=== PATIENT | male | born 1935 | race Caucasian/White ===

== ENCOUNTER 2018-08-25 20:01 | Inpatient (IN) | payer MEDICARE, OTHER ==
[~2018-08-25] VITALS: Ht 170.2 cm; Wt 64.4 kg
[2018-08-25] MEDS ORDERED: IV NORMAL SALINE 500 ML BAG IV ONE (20:15)
--- NOTE | 2018-08-25 20:20 | NUR ---
Pt. BIB [facility] for [facility], Dr. Crews notified- pt. is outside of [facility] window, last known "normal" mentation @1300, code stroke not activated per Dr. Crews,
[2018-08-25 20:30] LABS: BASOPHILS # (AUTO) 0.1 K/uL (0.0-8.0); BASOPHILS % (AUTO) 1.4 % (0.0-2.0); EOSINOPHILS # (AUTO) 0.1 K/uL (0.0-0.7); EOSINOPHILS % (AUTO) 1.2 % (0.0-7.0); HEMOGLOBIN 11.5 g/dL (12.5-16.3); LYMPHOCYTES # (AUTO) 1.2 K/uL (20.0-40.0); LYMPHOCYTES % (AUTO) 19.6 % (20.5-51.5); MEAN CORPUSCULAR HEMOGLOBIN 29.1 uug (23.8-33.4); MEAN CORPUSCULAR HGB CONC 33 g/dL (32.5-36.3); MEAN CORPUSCULAR VOLUME 88.7 fL (73.0-96.2); MONOCYTES # (AUTO) 0.5 K/uL (2.0-10.0); MONOCYTES % (AUTO) 8.7 % (0.0-11.0); NEUTROPHILS # (AUTO) 4.1 K/uL (1.8-8.9); NEUTROPHILS % (AUTO) 69.1 % (38.5-71.5); PLATELET COUNT (AUTO) 210 K/uL (152-348); RED BLOOD CELL COUNT(AUTO) 3.95 MIL/uL (4.06-5.63)
[2018-08-25 20:41] LABS: CARBON DIOXIDE 26 mmol/L (21-32); CHLORIDE 103 mmol/L (98-107); CREATININE 1.5 mg/dL (0.6-1.3); GLUCOSE 168 mg/dL (74-106); POTASSIUM 3.6 mmol/L (3.5-5.1); UREA NITROGEN, BLOOD 15 mg/dL (7-18)
[2018-08-25 20:43] LABS: ETHANOL < 3 MG/DL (0-0)
[2018-08-25 20:47] LABS: ALANINE AMINOTRANSFERASE 17 U/L (16-63); ALKALINE PHOSPHATASE 199 U/L (50-136); ASPARTATE AMINOTRANSFERASE 11 U/L (15-37); BILIRUBIN,DIRECT 0.3 mg/dL (0.0-0.2); TOTAL PROTEIN, SERUM 7.3 g/dL (6.4-8.2)
[2018-08-25 20:48] LABS: ACETAMINOPHEN < 2.0 ug/mL (10-30)
[2018-08-25 20:54] LABS: THYROID STIMULATING HORMONE 2.014 mIU/mL (0.358-3.740)
--- NOTE | 2018-08-25 20:55 | NUR ---
Pt. back from CT, resting in bed, IV patent - no s/s infiltration/phlebitis, urine specimen cup and urinal given,
--- NOTE | 2018-08-25 21:39 | NUR ---
urinal specimen sent to lab
[2018-08-25 21:48] LABS: *BILIRUBIN,URIN 1+ (NEGATIVE); *BLOOD, URINE Trace-intact (NEGATIVE); *CLARITY,URINE CLEAR (CLEAR); *COLOR,URINE YELLOW (YELLOW); *KETONES,URINE 1+ (NEGATIVE); *UROBILINOGEN,URINE 0.2 E.U./dl (NORMAL); LEUKOCYTE ESTERASE ,URINE NEGATIVE (NEGATIVE); NITRITE, URINE NEGATIVE (NEGATIVE); PH,URINE 5.5 (5.0-8.0); UGLUCOSE TRACE (NEGATIVE)
[2018-08-25] MEDS ORDERED: ASPI-605 PO (21:48)
[2018-08-25] MEDS ORDERED: DONE10TA44 PO (21:48)
[2018-08-25] MEDS ORDERED: METF-440 PO (21:48)
[2018-08-25] MEDS ORDERED: ATOR40TA PO (21:48)
[2018-08-25] MEDS ORDERED: CHOL10005 PO (21:48)
[2018-08-25] MEDS ORDERED: OMEP20CA11 PO (21:48)
[2018-08-25] MEDS ORDERED: CARB-93 PO (21:48)
[2018-08-25] MEDS ORDERED: MEMA28CA5 PO (21:48)
[2018-08-25] MEDS ORDERED: CYAN-51 PO (21:48)
[2018-08-25] MEDS ORDERED: MAGN400C PO (21:48)
[2018-08-25] MEDS ORDERED: FOLI1TAB16 PO (21:48)
[2018-08-25] MEDS ORDERED: GLIM2TAB2 PO (21:48)
[2018-08-25] MEDS ORDERED: SITA50TA PO (21:48)
[2018-08-25] MEDS ORDERED: METO25TA6 PO (21:48)
[2018-08-25] MEDS ORDERED: LOSA1TAB36 PO (21:48)
[2018-08-25] MEDS ORDERED: GABA-534 PO (21:48)
[2018-08-25 21:50] LABS: BACTERIA,URINE RARE /HPF (NONE SEEN); RBC,URINE 0-3 /HPF (0-3); SQUAMOUS EPITHELIAL CELL,UR NONE SEEN /HPF (NONE SEEN); WBC,URINE 0-3 /HPF (0-3)
[2018-08-25 22:02] LABS: *AMPHETAMINE, URINE NEGATIVE (NEGATIVE); *BARBITURATE, URINE NEGATIVE (NEGATIVE); *CANNABINOID, URINE NEGATIVE (NEGATIVE); *COCCAINE, URINE NEGATIVE (NEGATIVE); *OPIATE, URINE NEGATIVE (NEGATIVE); *PHENCYCLIDINE SCREEN,URINE NEGATIVE (NEGATIVE)
[2018-08-25] MEDS ORDERED: ASPIRIN 300 MG RECTAL SUPP RC ONE ×2 (22:06→22:15)
--- NOTE | 2018-08-25 22:33 | NUR ---
Gave report to Larisa, pt. to admit to [address] w/ Dr[address] Carr
[2018-08-25] MEDS ORDERED: ONDANSETRON 4 MG/2 ML VIAL IV PRN (22:45)
[2018-08-25] MEDS ORDERED: ENALAPRILAT DIHYDRATE 1.25 MG/1 ML VIAL IV PRN (22:45)
[2018-08-25] MEDS ORDERED: DEXTROSE 50% 50 ML DISP.SYRIN IV PRN (22:45)
[2018-08-25] MEDS ORDERED: MORPHINE SULFATE 2 MG/1 ML DISP.SYRIN IV PRN (22:45)
--- NOTE | 2018-08-25 23:09 | NUR ---
Pt. taken off unit in stretcher by AUTOMATION CONTROL TECHNICIAN to admit to 217 tele. care of Larisa LEWIS, NAD,
--- NOTE | 2018-08-25 23:10 | NUR ---
PATIENT ADMITTED TO UNIT. PATIENT ON TELE MONITORING. SR V-PACING AT 70 BPM. LETHARGIC AND SLEEPING INTERMITTENTLY. VITAL SIGNS WNL. WILL CONTINUE TO MONITOR.
[2018-08-25 23:14] VITALS: BP 158/78
[2018-08-26] MEDS: BLOOD SUGAR DIAGNOSTIC 1 EACH STRIP VI SCH ×4 (00:28→18:08)
[2018-08-26] MEDS: POTASSIUM CHLORIDE 20 MEQ in IV D5 1/2 NS 1000 ML 1,000 ML IV PRN ×2 (00:40→18:20)
--- NOTE | 2018-08-26 03:57 | NUR ---
Patient's urine turned hematuric; referred to Bari Estrada NP, and he ordered UA; no need to irrigate FC for now and observed.
[2018-08-26 04:00] VITALS: BP 108/72
[2018-08-26 04:56] LABS: *CLARITY,URINE CLOUDY (CLEAR); *COLOR,URINE AMBER (YELLOW)
[2018-08-26 04:58] LABS: *BLOOD, URINE 3+ (NEGATIVE); UGLUCOSE NEGATIVE (NEGATIVE)
[2018-08-26 04:59] LABS: *BILIRUBIN,URIN NEGATIVE (NEGATIVE); *KETONES,URINE 1+ (NEGATIVE); *UROBILINOGEN,URINE 0.2 E.U./dl (NORMAL)
[2018-08-26 05:00] LABS: LEUKOCYTE ESTERASE ,URINE 1+ (NEGATIVE); NITRITE, URINE POSITIVE (NEGATIVE)
[2018-08-26 05:11] LABS: BACTERIA,URINE MANY /HPF (NONE SEEN); MUCUS,URINE FEW /LPF (0-FEW); RBC,URINE TNTC /HPF (0-3); RENAL EPITHELIAL CELLS,URINE FEW /LPF (NONE SEEN); SQUAMOUS EPITHELIAL CELL,UR FEW /HPF (NONE SEEN)
[2018-08-26 06:39] LABS: BASOPHILS # (AUTO) 0.1 K/uL (0.0-8.0); BASOPHILS % (AUTO) 0.8 % (0.0-2.0); EOSINOPHILS % (AUTO) 0.1 % (0.0-7.0); HEMATOCRIT 34.1 % (36.7-47.1); HEMOGLOBIN 11.1 g/dL (12.5-16.3); LYMPHOCYTES % (AUTO) 13.4 % (20.5-51.5); MEAN CORPUSCULAR HEMOGLOBIN 28.8 uug (23.8-33.4); MEAN CORPUSCULAR HGB CONC 33 g/dL (32.5-36.3); MEAN CORPUSCULAR VOLUME 88.7 fL (73.0-96.2); MONOCYTES # (AUTO) 0.5 K/uL (2.0-10.0); MONOCYTES % (AUTO) 6.9 % (0.0-11.0); NEUTROPHILS # (AUTO) 5.8 K/uL (1.8-8.9); NEUTROPHILS % (AUTO) 78.8 % (38.5-71.5); PLATELET COUNT (AUTO) 203 K/uL (152-348); RED BLOOD CELL COUNT(AUTO) 3.84 MIL/uL (4.06-5.63); WHITE BLOOD COUNT (AUTO) 7.4 K/uL (3.6-10.2)
--- NOTE | 2018-08-26 06:52 | NUR ---
Alert and oriented x 1. IV site on right RAC intact and patent. Sewell intact and draining blood colored urine. aware. V pacing on tele at 71 bpm. Safety measures and call nur within reach. Will endorse to oncoming shift accordingly.
[2018-08-26 07:06] LABS: THYROID STIMULATING HORMONE 1.152 mIU/mL (0.358-3.740)
[2018-08-26 07:15] LABS: IRON, SERUM 32 ug/dL (50-175)
[2018-08-26] MEDS: INSULIN REGULAR, HUMAN 300 UNIT/3 ML VIAL SQ PRN ×2 (07:26→12:18)
[2018-08-26 07:57] LABS: ALANINE AMINOTRANSFERASE 18 U/L (16-63); ALKALINE PHOSPHATASE 192 U/L (50-136); ASPARTATE AMINOTRANSFERASE 11 U/L (15-37); BILIRUBIN,TOTAL 1.2 mg/dL (0.2-1.0); CARBON DIOXIDE 26 mmol/L (21-32); CHLORIDE 102 mmol/L (98-107); CHOLESTEROL 166 mg/dL (<200); CREATININE 1.5 mg/dL (0.6-1.3); GLUCOSE 200 mg/dL (74-106); HDL CHOLESTEROL 59 mg/dL (40-60); MAGNESIUM 1.8 mg/dL (1.8-2.4); PHOSPHOROUS 3.1 mg/dL (2.5-4.9); POTASSIUM 3.9 mmol/L (3.5-5.1); TOTAL PROTEIN, SERUM 6.9 g/dL (6.4-8.2); TRIGLYCERIDES 71 MG/DL (30-150); UREA NITROGEN, BLOOD 15 mg/dL (7-18)
[2018-08-26] MEDS: ASPIRIN 300 MG RECTAL SUPP RC SCH (08:44)
[2018-08-26] MEDS: FUROSEMIDE 20 MG/2 ML VIAL IV SCH (08:44)
[2018-08-26] MEDS: PANTOPRAZOLE SODIUM 40 MG VIAL IV SCH (08:44)
--- NOTE | 2018-08-26 09:00 | NUR ---
DR KAREN CARRILLO WAS INFORM OF LACTIC ACID RESULT 2.8 TODAY
[2018-08-26] MEDS ORDERED: MORPHINE SULFATE 4 MG/1 ML DISP.SYRIN IV PRN (10:15)
[2018-08-26 11:50] VITALS: BP 155/77
[2018-08-26 11:55] LABS: *CREATININE,URINE 37.5 mg/dL (30-125)
--- NOTE | 2018-08-26 13:00 | NUR ---
STROKE EDUCATION GIVEN TRWITH TRANSLATE IN FARSI SEEM TO BE UNDERSTAND BUT SLOW REACTION
--- NOTE | 2018-08-26 13:50 | NUR ---
C/O OF RT SIDE ARM AND LEG PAIN MORPHINE 1 MG IVP GIVEN ORDER AND O2 2 L APPLY FOR COMFORT CLOSED OBSERVATION
--- NOTE | 2018-08-26 14:00 | NUR ---
WOUND CARE NURSE SEEN PATIENT AND PICTURE TAKEN AT SACRAL AND LEFT HEEL MEPILEX COVER
[2018-08-26] MEDS ORDERED: Z GUARD REMEDY PASTE 57 GM TUBE TOP PRN (14:30)
[2018-08-26 15:59] VITALS: BP 143/68
[2018-08-26] MEDS: ACETAMINOPHEN 650 MG SUPP.RECT RC PRN (16:06)
--- NOTE | 2018-08-26 16:10 | NUR ---
INFORMED LORENA STREETER ABOUT LACTIC ACID REPEAT TEST 2.4. WILL CONTINUE TO MONITOR.
--- NOTE | 2018-08-26 16:20 | NUR ---
IVF RATE LOW DOWN TO 30ML./HR ORDER AND TYLENOL GIVEN FOR LOW GRADE TEMP 100.5 AND FOR COMFORT
--- NOTE | 2018-08-26 17:00 | NUR ---
DR MCPHERSON WAS INFORM OF PATIENT TROP WAS 0.066 AND ECCHO EF WAS 20-25% STATE WILL CHECK ON IT
--- NOTE | 2018-08-26 18:00 | NUR ---
STABLE HEMODYNAMIC STATUS NO RESPIRATORY DISTRESS OR SOB CONTINUE O2 2L VIA N/C F/C INPLACE URINE BROWNISH CLOUDY WITH SMALL BLOOD NOTED ,PAIN UNDER CONTROL SAFETY MEASURE PROVIDED CALL LIGHT IN REACH AND BED ALARM ON CLOSED OBSERVATION STILL NPO AND CONTINUE IVF
[2018-08-26] MEDS: CEFTRIAXONE 1 G in IV DEXTROSE 5% 50 ML IV SCH (18:34)
[2018-08-26 19:00] VITALS: BP 121/55
--- NOTE | 2018-08-26 19:15 | NUR ---
RECEIVED PATIENT SLEEPING. NO S/S OF RESPIRATORY DISTRESS. ON CONTINUOS O2 AT 2L VIA NC TOLERATING WELL, SATURATING 96%. SAFETY MEASURE AND AFLL PRECAUTION MAINTAINED. CONTINUE CARE PLANNED.
[2018-08-26] MEDS: ATORVASTATIN 10 MG TABLET PO SCH ×2 (20:37→20:41)
[2018-08-26] MEDS: Z GUARD REMEDY PASTE 57 GM TUBE TOP SCH (20:37)
[2018-08-27] VITALS (15 sets, daily range): BP systolic 96–136; BP diastolic 45–78
[2018-08-27] MEDS: BLOOD SUGAR DIAGNOSTIC 1 EACH STRIP VI SCH ×4 (00:10→17:47)
--- NOTE | 2018-08-27 06:58 | NUR ---
SHIFT END REPORT. SLEPT WELL. NO COMPLAINT PRESENTED. NO S/S OF RESPIRATORY DISTRESS. TOLERATING O2 AT 2L VIA NC. HOB ELEVATED AT ALL TIMES. F/C INTACT AND PATENT WITH LIGHT BROWNISH COLORED URINE. CONTINUE ON IVF ORDERED. IV INTACT AND PATENT, NO S/S OF INFILTRATION. KEPT NPO UNTIL ST EVALUATION. ALL NEEDS ATTENDED AND MET. CONTINUE CARE PLANNED.
--- NOTE | 2018-08-27 08:00 | NUR ---
AWAKE WHEN CALL BUT STILL SLURRED SPEECH NO SOB OR PAIN ON ASPIRATION AND FALL PRECAUTION BED ALARM ON AND CALL LIGHT IN REACH
--- NOTE | 2018-08-27 08:45 | NUR ---
ST SEEN PATIENT AT THIS TIME AND DO SWALLOWING TEST AND STATE HE CAN EAT WHEN AWAKE WITH PUREE THICK LIQ ASPIRATION PRECAUTION ONLY
[2018-08-27] MEDS: ASPIRIN 300 MG RECTAL SUPP RC SCH ×2 (08:46→09:00)
[2018-08-27] MEDS: PANTOPRAZOLE SODIUM 40 MG VIAL IV SCH (08:46)
[2018-08-27] MEDS: FUROSEMIDE 20 MG/2 ML VIAL IV SCH (08:46)
[2018-08-27] MEDS: Z GUARD REMEDY PASTE 57 GM TUBE TOP SCH ×2 (08:47→21:36)
[2018-08-27 09:29] LABS: BASOPHILS # (AUTO) 0.1 K/uL (0.0-8.0); BASOPHILS % (AUTO) 0.9 % (0.0-2.0); HEMATOCRIT 34.3 % (36.7-47.1); HEMOGLOBIN 11.5 g/dL (12.5-16.3); LYMPHOCYTES # (AUTO) 1.2 K/uL (20.0-40.0); MEAN CORPUSCULAR HEMOGLOBIN 28.8 uug (23.8-33.4); MEAN CORPUSCULAR HGB CONC 33 g/dL (32.5-36.3); MEAN CORPUSCULAR VOLUME 86.3 fL (73.0-96.2); MONOCYTES % (AUTO) 11.4 % (0.0-11.0); NEUTROPHILS # (AUTO) 6.8 K/uL (1.8-8.9); NEUTROPHILS % (AUTO) 74.7 % (38.5-71.5); PLATELET COUNT (AUTO) 175 K/uL (152-348); RED BLOOD CELL COUNT(AUTO) 3.98 MIL/uL (4.06-5.63); WHITE BLOOD COUNT (AUTO) 9.1 K/uL (3.6-10.2)
--- NOTE | 2018-08-27 09:30 | NUR ---
CHEST WAS MORE CONGESTION SUCTION TO MOUTH GIVEN BUT DOES NOT GET MUCH SPUTUM OUT KEEP HOB UP AND CLOSED OBSERVATION
--- NOTE | 2018-08-27 09:35 | NUR ---
TO CT HEAD WITHOUT CONTRAST VIA BED
[2018-08-27 09:52] LABS: ALANINE AMINOTRANSFERASE 18 U/L (16-63); ALKALINE PHOSPHATASE 163 U/L (50-136); ASPARTATE AMINOTRANSFERASE 9 U/L (15-37); BILIRUBIN,TOTAL 1.7 mg/dL (0.2-1.0); CARBON DIOXIDE 27 mmol/L (21-32); CHLORIDE 100 mmol/L (98-107); CREATININE 1.3 mg/dL (0.6-1.3); GLUCOSE 164 mg/dL (74-106); MAGNESIUM 1.7 mg/dL (1.8-2.4); PHOSPHOROUS 3.8 mg/dL (2.5-4.9); POTASSIUM 3.9 mmol/L (3.5-5.1); TOTAL PROTEIN, SERUM 6.7 g/dL (6.4-8.2); UREA NITROGEN, BLOOD 17 mg/dL (7-18)
--- NOTE | 2018-08-27 10:00 | NUR ---
BACK TO ROOM FAMILY AT BEDSIDE SUCTION PRN GIVEN
--- NOTE | 2018-08-27 10:25 | NUR ---
KAREN FLOOD WAS INFORM OF RESULT OF CT OF HEAD HAVING HEMORRHAGE AND CAROTID US WAS DONE AT BEDSIDE
--- NOTE | 2018-08-27 10:45 | NUR ---
DR LORENA JONES WAS SEEN PATIENT AND PATIENT CONDITION CONGESTION INCREASE NOTIFY ,ORDER IN CHART F/C INPLACE URINE CLOUDY BROWN NO BLOOD SEEN AT THIS TIME
--- NOTE | 2018-08-27 11:00 | NUR ---
VS TAKEN STABLE CONTINUE O2 AT 2L BUMEX IVP GIVEN ORDER URINE MORE CLEAR YELLOW NO BLOOD REPOSITION AWAKE OPEN EYE WHEN CALL NAME KEEP NPO BECAUSE DOES NOT AWAKE ENOUGH TO EAT STILL WEAK/FLACCID ON RT SIDE AND LEFT SIDE ABLE TO MOVE BUT WEAK,PHYSICAL THERAPY DO EXCERCISE ONLY UP AND DANGLE AT SIDE OF BED
[2018-08-27] MEDS ORDERED: BUMETANIDE 1 MG/4 ML VIAL IV ONE (11:45)
[2018-08-27] MEDS: INSULIN REGULAR, HUMAN 300 UNIT/3 ML VIAL SQ PRN ×2 (12:19→17:49)
--- NOTE | 2018-08-27 13:00 | NUR ---
TELE RUN SVT VS TAKEN AGAIN BP STABLE NO PAIN OR ANY RESPIRATORY DISTRESS CLOSED OBSERVATION DR LORENA JONES WAS INFORM ORDER TO TRANSFER TO THE UNIT CCU
--- NOTE | 2018-08-27 13:45 | NUR ---
TRANSFER TO CCU VIA BED AND REPORT GIVEN CONDITION STABLE
--- NOTE | 2018-08-27 14:00 | NUR ---
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 PT UPON ARRIVAL CONNECTED TO ECG MONITOR W/S TAKEN PT HAS A PACEMAKER ; V-PACING. HAS A RT AC IV LINE G20 RECEIVING IVF D5 1/2 NS +20meq K @ 30ML/HR. URINATING VIA FC.
[2018-08-27] MEDS: ACETAMINOPHEN 650 MG SUPP.RECT RC PRN (14:27)
--- NOTE | 2018-08-27 14:30 | NUR ---
PATIENTS TEMP TAKEN 102.3 AXI, COOLING MEASUREMENTS TAKEN, COOLING MATTRESS APPLIED AND TYLENOL OK GIVEN.
--- NOTE | 2018-08-27 15:20 | NUR ---
KAREN MARIA INFORMED ABOUT HIGH TEMP ORDERED TO ADD ZOSYN IV TO MEDICATION REGIMEN. ORDERS RECEIVED.
[2018-08-27] MEDS ORDERED: PIPERACILLIN/TAZOBACTAM/D5W 3.375 G in PREMIXED 1 EACH IV SCH (15:45)
[2018-08-27] MEDS: POTASSIUM CHLORIDE 20 MEQ in IV D5/ 0.9% NACL 1,000 ML IV PRN (16:36)
[2018-08-27] MEDS: PIPERACILLIN/TAZOBACTAM/D5W 3.375 G in PREMIXED 1 EACH IV SCH (16:37)
--- NOTE | 2018-08-27 17:30 | NUR ---
PATIENT SENT DOWN TO RADIOLOGY UNIT, CT SCAN DONE, NO COMPLICATIONS AND BACK TO CCU.
[2018-08-27] MEDS: CEFTRIAXONE 1 G in IV DEXTROSE 5% 50 ML IV SCH (17:42)
[2018-08-28] VITALS (23 sets, daily range): BP systolic 91–151; BP diastolic 44–93
[2018-08-28] MEDS: PIPERACILLIN/TAZOBACTAM/D5W 3.375 G in PREMIXED 1 EACH IV SCH ×4 (00:16→21:46)
[2018-08-28] MEDS: BLOOD SUGAR DIAGNOSTIC 1 EACH STRIP VI SCH ×5 (00:25→23:31)
[2018-08-28] MEDS: INSULIN REGULAR, HUMAN 300 UNIT/3 ML VIAL SQ PRN ×5 (00:26→23:32)
[2018-08-28 05:19] LABS: BASOPHILS % (AUTO) 0.5 % (0.0-2.0); HEMATOCRIT 33.3 % (36.7-47.1); HEMOGLOBIN 11.3 g/dL (12.5-16.3); LYMPHOCYTES # (AUTO) 1.1 K/uL (20.0-40.0); LYMPHOCYTES % (AUTO) 13.5 % (20.5-51.5); MEAN CORPUSCULAR HEMOGLOBIN 28.9 uug (23.8-33.4); MEAN CORPUSCULAR HGB CONC 34 g/dL (32.5-36.3); MONOCYTES # (AUTO) 0.8 K/uL (2.0-10.0); MONOCYTES % (AUTO) 9.2 % (0.0-11.0); NEUTROPHILS # (AUTO) 6.4 K/uL (1.8-8.9); NEUTROPHILS % (AUTO) 76.8 % (38.5-71.5); PLATELET COUNT (AUTO) 184 K/uL (152-348); RED BLOOD CELL COUNT(AUTO) 3.91 MIL/uL (4.06-5.63); WHITE BLOOD COUNT (AUTO) 8.4 K/uL (3.6-10.2)
[2018-08-28 05:26] LABS: ALANINE AMINOTRANSFERASE 13 U/L (16-63); ALKALINE PHOSPHATASE 130 U/L (50-136); ASPARTATE AMINOTRANSFERASE 10 U/L (15-37); CARBON DIOXIDE 27 mmol/L (21-32); CHLORIDE 102 mmol/L (98-107); CREATININE 1.4 mg/dL (0.6-1.3); GLUCOSE 171 mg/dL (74-106); MAGNESIUM 1.5 mg/dL (1.8-2.4); PHOSPHOROUS 3.8 mg/dL (2.5-4.9); POTASSIUM 3.5 mmol/L (3.5-5.1); TOTAL PROTEIN, SERUM 6.2 g/dL (6.4-8.2); UREA NITROGEN, BLOOD 23 mg/dL (7-18)
[2018-08-28] MEDS: ACETAMINOPHEN 650 MG SUPP.RECT RC PRN ×2 (06:01→18:09)
--- NOTE | 2018-08-28 07:48 | NUR ---
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 PT HAS A LT SIDE PACEMAKER ; V-PACING. HAS A RT AC IV LINE G20 RECEIVING IVF D5 1/2 NS +20meq K @ 30ML/HR. URINATING VIA FC. TEMP AROUND 101 F, COOLING MATTRESS UNDER PATIENT
[2018-08-28] MEDS: POTASSIUM CHLORIDE 20 MEQ in IV D5/ 0.9% NACL 1,000 ML IV PRN (07:54)
[2018-08-28] MEDS: FUROSEMIDE 20 MG/2 ML VIAL IV SCH (08:36)
[2018-08-28] MEDS: PANTOPRAZOLE SODIUM 40 MG VIAL IV SCH (08:37)
[2018-08-28] MEDS: Z GUARD REMEDY PASTE 57 GM TUBE TOP SCH ×2 (08:37→20:22)
--- NOTE | 2018-08-28 10:30 | NUR ---
SEEN BY JESSICA VILLAFANA,EVGENY-NEURO. UPDATES GIVEN ON PATIENT. ASSESSMENT DONE AND ADVISED TO KEEP PATIENT IN CCU FOR ANOTHER NIGHT UNDER NEURO OBSERVATION. NO NEW ORDERS
--- NOTE | 2018-08-28 11:00 | NUR ---
SEEN BY, EVGENY KIRK STUDENT WITH CANDACE HEMPHILL, ASSESSMENT DONE. CONCERNS RELATED NUTRITION GIVEN, SUGGESTED TUBE FEEDING. NEW ORDERS RECEIVED, NEURO CONCERNS RELATED OBSERVATION GIVEN.
[2018-08-28] MEDS: MAGNESIUM SULFATE/D5W 100 ML IV SCH ×2 (11:59→12:57)
--- NOTE | 2018-08-28 12:32 | NUR ---
SEEN BY DNP,KAREN CAMARILLO, ORDERED TO FOR A SWALLOW EVALUATION, AND START NGT FEEDING, ONCE STARTED TO DISCONTINUE IV FLUID. AND KEEP PATIENT IN CCU TILL SHIFT CHANGE THEN TRANSFER PATIENT TO [facility]. ALL ORDERS RECEIVED
--- NOTE | 2018-08-28 13:00 | NUR ---
NG TUBE INSERTED SIZE 16 IN THE RT NARE. CX-RAY DONE, TUBE PLACEMENT VERIFIED. DIETARY CONSULTATION PUT IN AWAITING FOR TUBE FEEDING RECOMMENDATIONS.
[2018-08-28] MEDS: GLUCERNA 1.2 1000ML LIQUID NG PRN (14:15)
--- NOTE | 2018-08-28 14:30 | NUR ---
NEW IV LINE INSERTED ON RT HAND G20. RT UPPER ARM IV REMOVED INFILTRATED. TUBE FEEDING STARTED AT 20ML/HR.
--- NOTE | 2018-08-28 17:00 | NUR ---
SEEN BY DR TENA, UPDATES GIVEN AND NEW ORDERS RECEIVED.
[2018-08-28] MEDS: CEFTRIAXONE 1 G in IV DEXTROSE 5% 50 ML IV SCH (17:49)
--- NOTE | 2018-08-28 18:00 | NUR ---
BED BATH PROVIDED, PT TEMP ELEVATING TYLENOL IA GIVEN, COOLING MEASURES PROVIDED.
--- NOTE | 2018-08-28 19:30 | NUR ---
ROUNDS MADE PATIENT IN BED AWAKE ,OPEN EYES SPONTANEOUSLY ,NON VERBAL DOESN'T FOLLOW COMMANDS .NO RESPIRATORY DISTRESS NOTED BREATHING EVEN AND UNLABORED 02 AT 2 L MIN. RIGHT SIDE PARALYSIS ,NOTED LEFT SIDE WEAKNESS .TUBE FEEDINGS IN PROGRESS TOLERATING GLUCERNA 1.2 IN PROGRESS AT 20 ML/HR .HOB UP ASPIRATION PRECAUTION OBSERVED ,TO INCREASE GOAL OF 70 ML /HR . CONTINUE TO MONITOR V/S AND LEVELS OF COMFORT.
--- NOTE | 2018-08-28 20:38 | NUR ---
PATIENT SON CAME AND UPDATED WITH PATIENT STATUS AND CONDITION .
--- NOTE | 2018-08-28 21:30 | NUR ---
as per son patient able to understand and recognized him . able to nod head to simple questions . extra blanket place,as per son patient is cold .
--- NOTE | 2018-08-28 22:30 | NUR ---
bed bath done ,changed soiled liens and gown . sacral area redness applied hydrogel and z guard cover with Mepilex, f/c ,oral care done . turned and reposition ,hob up . aspiration precaution observed .
[2018-08-29] VITALS (13 sets, daily range): BP systolic 116–149; BP diastolic 44–122
[2018-08-29] MEDS: PIPERACILLIN/TAZOBACTAM/D5W 3.375 G in PREMIXED 1 EACH IV SCH ×3 (05:18→21:42)
[2018-08-29] MEDS: INSULIN REGULAR, HUMAN 300 UNIT/3 ML VIAL SQ PRN ×4 (05:34→23:31)
[2018-08-29] MEDS: BLOOD SUGAR DIAGNOSTIC 1 EACH STRIP VI SCH ×4 (05:35→23:30)
[2018-08-29 05:40] LABS: BASOPHILS % (AUTO) 0.4 % (0.0-2.0); EOSINOPHILS % (AUTO) 0.2 % (0.0-7.0); HEMOGLOBIN 10.4 g/dL (12.5-16.3); LYMPHOCYTES # (AUTO) 0.8 K/uL (20.0-40.0); LYMPHOCYTES % (AUTO) 8.5 % (20.5-51.5); MEAN CORPUSCULAR HEMOGLOBIN 28.4 uug (23.8-33.4); MEAN CORPUSCULAR HGB CONC 34 g/dL (32.5-36.3); MEAN CORPUSCULAR VOLUME 84.7 fL (73.0-96.2); MONOCYTES # (AUTO) 0.6 K/uL (2.0-10.0); MONOCYTES % (AUTO) 6.2 % (0.0-11.0); NEUTROPHILS # (AUTO) 8.4 K/uL (1.8-8.9); NEUTROPHILS % (AUTO) 84.7 % (38.5-71.5); PLATELET COUNT (AUTO) 212 K/uL (152-348); RED BLOOD CELL COUNT(AUTO) 3.66 MIL/uL (4.06-5.63); WHITE BLOOD COUNT (AUTO) 9.9 K/uL (3.6-10.2)
[2018-08-29 05:47] LABS: CARBON DIOXIDE 27 mmol/L (21-32); CHLORIDE 102 mmol/L (98-107); CREATININE 1.5 mg/dL (0.6-1.3); GLUCOSE 233 mg/dL (74-106); MAGNESIUM 1.9 mg/dL (1.8-2.4); PHOSPHOROUS 4.1 mg/dL (2.5-4.9); POTASSIUM 3.4 mmol/L (3.5-5.1); UREA NITROGEN, BLOOD 29 mg/dL (7-18)
[2018-08-29] MEDS: PANTOPRAZOLE SODIUM 40 MG VIAL IV SCH (08:43)
[2018-08-29] MEDS: Z GUARD REMEDY PASTE 57 GM TUBE TOP SCH ×2 (08:44→20:54)
--- NOTE | 2018-08-29 09:24 | NUR ---
Physical therapy here at the bedside for eval.
[2018-08-29] MEDS: ACETAMINOPHEN 650 MG SUPP.RECT RC PRN (09:26)
[2018-08-29] MEDS ORDERED: POTASSIUM CHLORIDE 20 MEQ POWDER PACKET GT ONE (10:00)
[2018-08-29] MEDS: GLUCERNA 1.2 1000ML LIQUID NG PRN (10:00)
--- NOTE | 2018-08-29 19:30 | NUR ---
patient in bed awake , open eyes spontaneously bit doesn't follows commands ,withdraws to pain .left upper and lower extremities + movement strong ,right upper and lower extremities flaccid .temp 100.1F via rectal temp .no respiratory distress noted tolerating 02 at 2 l min . hob up oral care .v paced on the heart monitor rate controlled at 70. no s/s/ of pain . with bilateral soft wrist restraint as [er day RN he keep removing equipment and ngt .continue to monitor v/s and levels of comfort .
--- NOTE | 2018-08-29 19:55 | NUR ---
patient son came and updated with father condition .
--- NOTE | 2018-08-29 20:30 | NUR ---
sponge bath done with cold water ,this temp temp rectally is 100.2 F rectally ,skin care done,changed soiled linens and gown . f/c and oral care done suction orally . sacral area applied hydrogel + z guard cover with Mepilex . turned and reposition offlaoded heels and back with pillow .scds used to bilateral legs and on special air loss mattress . .
[2018-08-30] VITALS (9 sets, daily range): BP systolic 111–153; BP diastolic 47–81
--- NOTE | 2018-08-30 02:00 | NUR ---
sleeping breathing even and unlabored .no s/s/ of pain . continue to monitor v/s and levels of comfort .
--- NOTE | 2018-08-30 04:00 | NUR ---
am care done bath patient ,skin care ,f/c and oral care done . changed soiled linens and gown .hob up .
--- NOTE | 2018-08-30 04:00 | NUR ---
found NGT out patient was able to pull it out . reinserted .will verify placement via xray .
[2018-08-30 05:21] LABS: BASOPHILS % (AUTO) 0.4 % (0.0-2.0); EOSINOPHILS % (AUTO) 0.4 % (0.0-7.0); HEMATOCRIT 33.5 % (36.7-47.1); HEMOGLOBIN 11.2 g/dL (12.5-16.3); LYMPHOCYTES # (AUTO) 0.8 K/uL (20.0-40.0); LYMPHOCYTES % (AUTO) 8.5 % (20.5-51.5); MEAN CORPUSCULAR HEMOGLOBIN 28.5 uug (23.8-33.4); MEAN CORPUSCULAR HGB CONC 33 g/dL (32.5-36.3); MEAN CORPUSCULAR VOLUME 85.7 fL (73.0-96.2); MONOCYTES # (AUTO) 0.5 K/uL (2.0-10.0); MONOCYTES % (AUTO) 5.4 % (0.0-11.0); NEUTROPHILS # (AUTO) 8.1 K/uL (1.8-8.9); NEUTROPHILS % (AUTO) 85.3 % (38.5-71.5); PLATELET COUNT (AUTO) 227 K/uL (152-348); RED BLOOD CELL COUNT(AUTO) 3.91 MIL/uL (4.06-5.63); WHITE BLOOD COUNT (AUTO) 9.6 K/uL (3.6-10.2)
[2018-08-30] MEDS: BLOOD SUGAR DIAGNOSTIC 1 EACH STRIP VI SCH ×4 (05:21→23:19)
[2018-08-30] MEDS: PIPERACILLIN/TAZOBACTAM/D5W 3.375 G in PREMIXED 1 EACH IV SCH ×3 (05:22→21:18)
[2018-08-30] MEDS: INSULIN REGULAR, HUMAN 300 UNIT/3 ML VIAL SQ PRN ×3 (05:40→23:20)
[2018-08-30 05:42] LABS: CARBON DIOXIDE 32 mmol/L (21-32); CHLORIDE 105 mmol/L (98-107); CREATININE 1.3 mg/dL (0.6-1.3); GLUCOSE 269 mg/dL (74-106); MAGNESIUM 2.3 mg/dL (1.8-2.4); PHOSPHOROUS 3.5 mg/dL (2.5-4.9); UREA NITROGEN, BLOOD 29 mg/dL (7-18)
[2018-08-30] MEDS: PANTOPRAZOLE SODIUM 40 MG VIAL IV SCH (08:29)
[2018-08-30] MEDS: Z GUARD REMEDY PASTE 57 GM TUBE TOP SCH ×2 (08:29→20:45)
--- NOTE | 2018-08-30 10:25 | NUR ---
Chiquis Segundo Neurology services in the unit to examine pt. report given. No new orders received.
--- NOTE | 2018-08-30 10:30 | NUR ---
Attending physician DNP in the unit to see and examine pt. full report given, orders to transfer pt. to telemetry serviced, received and carried.
[2018-08-30] MEDS: GLUCERNA 1.2 1000ML LIQUID NG PRN (10:35)
--- NOTE | 2018-08-30 11:25 | NUR ---
Dr. Miguel in the unit to see and examine pt. full report given. No new orders received.
--- NOTE | 2018-08-30 12:36 | NUR ---
Cardiology services in the unit to see and examine pt. report given.
[2018-08-30] MEDS: ACETAMINOPHEN 650 MG SUPP.RECT RC PRN (13:25)
--- NOTE | 2018-08-30 14:25 | NUR ---
Pt arrived on the unit, calm, responsive to name and can answer yes and no questions. Rash on left buttocks and back. Pt appears to not be in any pain. Pt has mittens, 2L NC O2 saturation at 98%. Mepilex placed on sacral area for DTI. IV site on RUE #22 gauge, RAC # 20 gauge, both patent and running. NG tube in place feeding running at 65cc/hr goal is 70cc/hr.pt shows no signs of respiratory distress at this time. Continue to monitor pt.
--- NOTE | 2018-08-30 14:44 | NUR ---
Bedside report given to Tito Danielle. Patient transfer to room 214, on 2LNC, saturation above 96%. NG with feeding at goal therapy, 70cc/hr. no residual. SBP and Hr. within desire limits. No sob, or any other discomfort noted. Pt. left with BUE restrains (mittens) not following directions and attempting to remove IV lines and NG tube. Skin with no complications from baseline. Addendum: 08/30/18 at 1448 by MICHELLE MANJARREZ RN IV line to RUE G20 Rac G 20.
--- NOTE | 2018-08-30 15:02 | NUR ---
New 1st step mattress arrived. The blower was replaced due to the old one blowing hot air. Pt resting comfortably.
--- NOTE | 2018-08-30 15:30 | NUR ---
tube feeding running at 70cc/hr
--- NOTE | 2018-08-30 18:11 | NUR ---
Pt observed resting in bed with no signs of respiratory distress. Blood sugar 292. Given 6 units of insulin. Pt shows no signs of hyper or hypo glycemia at this time. NG tube in place 5cc or residual aspirated pt is tolerating feeding.Feeding input 440cc. Sewell catheter intact output 100cc since transfer to the unit. continue to monitor pt.
--- NOTE | 2018-08-30 19:30 | NUR ---
Patient in stable condition at start of shift. No acute distress noted. Vital signs within range. V-paced on tele monitor. Patient noted with confusion & unable to communicate needs. On 2L of oxygen via NC. Patient with NG tube running with tube feedings at 70cc/hr. Patient with right AC 20G IV site & left upper forearm 22G IV site flushing well, patent, no complications noted. On air mattress for skin protection. Noted with DTI on sacral area currently with Mepilex. Dressing is clean, dry, intact. Patient also with left heel sore. Bed in low position, locked, x2 side rails up. Call light within reach. Will continue to monitor through shift.
[2018-08-31 00:41] VITALS: BP 131/64
--- NOTE | 2018-08-31 02:00 | NUR ---
Patient was able to remove NG tube with soft restraints on bilateral hands. Patient confused & non-compliant. Patient stable, in no acute distress. Hourly rounds done promptly. Will reinsert NG tube & call for order to verify placement with X-ray. Will continue to monitor through shift.
[2018-08-31 04:40] VITALS: BP 152/67
[2018-08-31] MEDS: PIPERACILLIN/TAZOBACTAM/D5W 3.375 G in PREMIXED 1 EACH IV SCH ×3 (05:01→21:15)
[2018-08-31] MEDS: BLOOD SUGAR DIAGNOSTIC 1 EACH STRIP VI SCH ×4 (05:36→23:41)
[2018-08-31] MEDS: INSULIN REGULAR, HUMAN 300 UNIT/3 ML VIAL SQ PRN ×4 (05:38→23:41)
--- NOTE | 2018-08-31 05:55 | NUR ---
NG tube placement verified by Xray. NG tube in place. Patient stable through shift. Vital signs within range. Continues to be agitated and restless through shift. Several attempts of removing Oxygen and NG tubing. Rounds performed frequently. Safety measures implemented. Turned & repositioned every 2 hours. Skin care provided. Kept clean, dry, & intact. Blood sugar this AM at 208. Covered with 4 units of insulin per sliding scale. No s/s of hyperglycemia noted. Sewell catheter in place with good urine output. Will endorse to day shift nurse.
[2018-08-31 07:19] LABS: BASOPHILS # (AUTO) 0.1 K/uL (0.0-8.0); BASOPHILS % (AUTO) 0.7 % (0.0-2.0); EOSINOPHILS % (AUTO) 0.4 % (0.0-7.0); HEMATOCRIT 36.2 % (36.7-47.1); HEMOGLOBIN 11.6 g/dL (12.5-16.3); LYMPHOCYTES # (AUTO) 1.3 K/uL (20.0-40.0); LYMPHOCYTES % (AUTO) 13.3 % (20.5-51.5); MEAN CORPUSCULAR HEMOGLOBIN 27.7 uug (23.8-33.4); MEAN CORPUSCULAR HGB CONC 32 g/dL (32.5-36.3); MEAN CORPUSCULAR VOLUME 86.1 fL (73.0-96.2); MONOCYTES # (AUTO) 0.8 K/uL (2.0-10.0); MONOCYTES % (AUTO) 8.3 % (0.0-11.0); NEUTROPHILS # (AUTO) 7.4 K/uL (1.8-8.9); NEUTROPHILS % (AUTO) 77.3 % (38.5-71.5); PLATELET COUNT (AUTO) 239 K/uL (152-348); WHITE BLOOD COUNT (AUTO) 9.5 K/uL (3.6-10.2)
[2018-08-31 07:30] LABS: CARBON DIOXIDE 29 mmol/L (21-32); CHLORIDE 107 mmol/L (98-107); CREATININE 1.3 mg/dL (0.6-1.3); GLUCOSE 255 mg/dL (74-106); MAGNESIUM 2.2 mg/dL (1.8-2.4); PHOSPHOROUS 3.5 mg/dL (2.5-4.9); POTASSIUM 4.2 mmol/L (3.5-5.1); UREA NITROGEN, BLOOD 33 mg/dL (7-18)
[2018-08-31 07:56] VITALS: BP 152/70
[2018-08-31] MEDS: PANTOPRAZOLE SODIUM 40 MG VIAL IV SCH (08:58)
[2018-08-31] MEDS: Z GUARD REMEDY PASTE 57 GM TUBE TOP SCH ×2 (08:59→20:38)
[2018-08-31 12:00] VITALS: BP 158/76
[2018-08-31] MEDS: CARVEDILOL 6.25 MG TABLET PO SCH ×2 (13:57→20:41)
[2018-08-31 15:32] VITALS: BP 129/63
--- NOTE | 2018-08-31 18:37 | NUR ---
Pt responds to name, still attempts to remove Sewell catheter, IV lines, oxygen and NG tube. Pt has 1:1 sitter for safety and to keep pt from removing lines. Pt continues to have feedings. Blood sugar covered throughout the day. Pt pulses are felt on all extremities. pt was visited by friends and family. No signs of respiratory distress noted at this time. continue to monitor pt.
[2018-08-31] MEDS: GLUCERNA 1.2 1000ML LIQUID NG PRN (18:44)
[2018-08-31 19:00] VITALS: BP 122/59
--- NOTE | 2018-08-31 20:15 | NUR ---
RECEIVED PATIENT AWAKE IN BED. ALERT TO SELF ONLY. NGT FEEDING INFUSING WELL ORDERED. HOB ELEVATED. ON ASPIRATION PRECAUTIONS. NO S/S OF PAIN OR DISCOMFORT. NO FACIAL GRIMACE NOTED. NO RESP. DISTRESS NOTED. ON O2 VIA SIMPLE MASK SATING 100%. VS WNL. ON TELE V-PACING. F/C INTACT AND PATENT, DRAINING YELLOW URINE. ON AIR MATTRESS. REPOSITIONED TO SIDE FOR PRESSURE RELIEF AND COMFORT. DVT PUMPS IN PLACE. DRESSING NOTED TO SACRAL, CHANGED. C/D/I. CALL LIGHT IN REACH. ALL NEEDS ATTENDED. WILL CONTINUE TO MONITOR AND ASSESS.
[2018-08-31] MEDS: ACETAMINOPHEN 650 MG SUPP.RECT RC PRN (20:41)
[2018-09-01] VITALS: BP 124/53
[2018-09-01 04:00] VITALS: BP 112/53
[2018-09-01] MEDS: PIPERACILLIN/TAZOBACTAM/D5W 3.375 G in PREMIXED 1 EACH IV SCH ×3 (05:02→21:18)
[2018-09-01] MEDS: BLOOD SUGAR DIAGNOSTIC 1 EACH STRIP VI SCH ×4 (05:56→23:33)
[2018-09-01] MEDS: INSULIN REGULAR, HUMAN 300 UNIT/3 ML VIAL SQ PRN ×4 (05:57→23:35)
--- NOTE | 2018-09-01 06:13 | NUR ---
PATIENT ASLEEP. REPOSITIONED TO SIDE. NGT OFF AT THIS TIME ORDERED. ON TELE V-PACING. SITTER AT BEDSIDE FOR SAFETY. ALL NEEDS ATTENDED, WILL CONTINUE TO MONITOR AND ASSESS.
[2018-09-01 06:56] LABS: CARBON DIOXIDE 32 mmol/L (21-32); CHLORIDE 109 mmol/L (98-107); CREATININE 1.3 mg/dL (0.6-1.3); MAGNESIUM 2.3 mg/dL (1.8-2.4); PHOSPHOROUS 3.8 mg/dL (2.5-4.9); POTASSIUM 4.5 mmol/L (3.5-5.1); UREA NITROGEN, BLOOD 34 mg/dL (7-18)
[2018-09-01 07:03] LABS: BASOPHILS # (AUTO) 0.1 K/uL (0.0-8.0); BASOPHILS % (AUTO) 1.1 % (0.0-2.0); EOSINOPHILS # (AUTO) 0.3 K/uL (0.0-0.7); EOSINOPHILS % (AUTO) 3.5 % (0.0-7.0); HEMATOCRIT 36.2 % (36.7-47.1); HEMOGLOBIN 11.6 g/dL (12.5-16.3); LYMPHOCYTES # (AUTO) 1.4 K/uL (20.0-40.0); MEAN CORPUSCULAR HEMOGLOBIN 27.6 uug (23.8-33.4); MEAN CORPUSCULAR HGB CONC 32 g/dL (32.5-36.3); MONOCYTES # (AUTO) 0.8 K/uL (2.0-10.0); MONOCYTES % (AUTO) 8.5 % (0.0-11.0); NEUTROPHILS # (AUTO) 6.7 K/uL (1.8-8.9); NEUTROPHILS % (AUTO) 71.9 % (38.5-71.5); PLATELET COUNT (AUTO) 262 K/uL (152-348); RED BLOOD CELL COUNT(AUTO) 4.21 MIL/uL (4.06-5.63); WHITE BLOOD COUNT (AUTO) 9.3 K/uL (3.6-10.2)
[2018-09-01 07:08] LABS: GLUCOSE 310 mg/dL (74-106)
--- NOTE | 2018-09-01 07:30 | NUR ---
RECEIVED PATIENT LYING IN BED WITH MITTENS ON TO PREVENT PATIENT PULLING OF LINES AND HARMING SELF. ASSESSED SKIN AROUND WRIST NO APPARENT PROBLEM. PATIENT IS ON OXYGEN 2L VIA SIMPLE MASK. NO DISTRESS NOTED. XRAY OF THE CHEST PENDING, WILL FOLLOW UP TO CONFIRM PROPER PLACEMENT BEFORE STARTING CONTINUOUS FEEDING. PATIENT IS ON TELE MONITOR, VPACING. COHEN IS IN PLACE, NO SIGNS OF INFECTION NOTED AND IT IS DRAINING APPROPRIATELY. OFFLOADING THE HEELS TO PREVENT ULCER AND TURNING PATIENT [id number]. BED IN LOW POSITION, LOCKED AND CALL LIGHT IN REACH. WILL CONTINUE TO MONITOR.
[2018-09-01 08:00] VITALS: BP 130/63
[2018-09-01] MEDS: PANTOPRAZOLE ORAL SUSPENSION 40 MG SUSPDR.PKT NG SCH (08:39)
[2018-09-01] MEDS: CARVEDILOL 6.25 MG TABLET PO SCH ×2 (08:40→18:00)
[2018-09-01] MEDS: Z GUARD REMEDY PASTE 57 GM TUBE TOP SCH ×2 (08:40→21:19)
[2018-09-01 15:46] VITALS: BP 139/69
--- NOTE | 2018-09-01 18:50 | NUR ---
PATIENT IS ALERT AND ORIENTED TO SELF ONLY. PATIENT HAS A 1:1 SITTER AT BEDSIDE AND SOFT MITTENS ON TO PREVENT PULLING OF LINES. PATIENT PULLED OUT NG TUBE ONCE DURING SHIFT. INSERTED NG TUBE AND CXR CONFIRMATION OF PLACEMENT DONE. NG TUBE IS IN PROPER PLACEMENT. NG TUBE FEEDING IS TO RUN AT 70ML FROM 10AM-6PM. PATIENT IS ON OXYGEN 2L VIA MASK. PATIENT HAS A COHEN IN PLACE, DRAINING CLEAR YELLOW. SACRAL AREA CARE WITH MAPLEX AND HYFROGEL AND LEFT HEEL OFFLOADING. PATIENT HAS ACCESS ON RIGHT UPPER ARM 22G AND RIGHT AC 20G. BED IS IN LOW LOCKED POSITION.
[2018-09-01 20:00] VITALS: BP 110/54
[2018-09-02] VITALS: BP 128/59
[2018-09-02] MEDS: PIPERACILLIN/TAZOBACTAM/D5W 3.375 G in PREMIXED 1 EACH IV SCH ×3 (05:40→21:02)
[2018-09-02] MEDS: INSULIN REGULAR, HUMAN 300 UNIT/3 ML VIAL SQ PRN (05:46)
[2018-09-02] MEDS: BLOOD SUGAR DIAGNOSTIC 1 EACH STRIP VI SCH ×4 (05:46→23:14)
[2018-09-02] MEDS: PANTOPRAZOLE ORAL SUSPENSION 40 MG SUSPDR.PKT NG SCH (05:46)
[2018-09-02] MEDS: GLUCERNA 1.2 1000ML LIQUID NG PRN (05:52)
[2018-09-02 06:43] LABS: BASOPHILS # (AUTO) 0.1 K/uL (0.0-8.0); BASOPHILS % (AUTO) 1.2 % (0.0-2.0); EOSINOPHILS # (AUTO) 0.3 K/uL (0.0-0.7); EOSINOPHILS % (AUTO) 3.6 % (0.0-7.0); HEMOGLOBIN 11.6 g/dL (12.5-16.3); LYMPHOCYTES # (AUTO) 1.3 K/uL (20.0-40.0); LYMPHOCYTES % (AUTO) 17.3 % (20.5-51.5); MEAN CORPUSCULAR HEMOGLOBIN 27.8 uug (23.8-33.4); MEAN CORPUSCULAR HGB CONC 32 g/dL (32.5-36.3); MONOCYTES # (AUTO) 0.8 K/uL (2.0-10.0); MONOCYTES % (AUTO) 10.5 % (0.0-11.0); NEUTROPHILS # (AUTO) 5.2 K/uL (1.8-8.9); NEUTROPHILS % (AUTO) 67.4 % (38.5-71.5); PLATELET COUNT (AUTO) 301 K/uL (152-348); RED BLOOD CELL COUNT(AUTO) 4.18 MIL/uL (4.06-5.63); WHITE BLOOD COUNT (AUTO) 7.7 K/uL (3.6-10.2)
[2018-09-02 06:48] LABS: CARBON DIOXIDE 29 mmol/L (21-32); CHLORIDE 109 mmol/L (98-107); CREATININE 1.2 mg/dL (0.6-1.3); MAGNESIUM 2.2 mg/dL (1.8-2.4); PHOSPHOROUS 4.2 mg/dL (2.5-4.9); POTASSIUM 4.4 mmol/L (3.5-5.1); UREA NITROGEN, BLOOD 33 mg/dL (7-18)
[2018-09-02 06:55] LABS: GLUCOSE 306 mg/dL (74-106)
--- NOTE | 2018-09-02 07:12 | NUR ---
PATIENT RESTED WELL IN BETWEEN CARE; REMAINS ON SITTER DESPITE HAVING RESTRAINTS; KEEP PULLING LINES; KEPT HOB; SAFETY MAINTAINED; PATIENT MANAGED TO PULL OUT; NGT THIS SHANNA, MARYBETH RN PLACED NGT IN AND XRAY ORDERED. CONTINUE TO MONITOR ; CONTINUE PLAN OF CARE.
--- NOTE | 2018-09-02 07:45 | NUR ---
patient received resting in bed, restraints on patient, patient with sitter, patient continues to attempt to try and remove lines, IV access, NG tube and oxygen, patient with NG tube in place. continue to monitor frequently, q15min checks restraints, assess skin frequently. patient with márquez catheter in place, draining well. continue to provide care, reposition every 2 hours.
[2018-09-02 08:00] VITALS: BP_SYST 138; BP_SYST 140; BP_DIAS 68; BP_DIAS 70
[2018-09-02] MEDS: CARVEDILOL 6.25 MG TABLET PO SCH ×2 (08:42→18:00)
--- NOTE | 2018-09-02 09:20 | NUR ---
patient pull out NG tube again despite restraint and sitter; Certified Residential Medication Aide notified Juan Pablo Valadez N.P. and charge nurse DEBBIE Romero aware. patient frequently managed to take out or remove NG tube.
[2018-09-02] MEDS: Z GUARD REMEDY PASTE 57 GM TUBE TOP SCH ×2 (09:35→21:03)
--- NOTE | 2018-09-02 10:05 | NUR ---
patient family visited at this time, questions and concerns addressed. Family requesting peg placement, customer service officer aware Juan Pablo Valadez N.P. patient daughter Bia Boyd, and two sons Tana Boyd and Cristopehr Boyd at bedside.
[2018-09-02 12:00] VITALS: BP 139/62
--- NOTE | 2018-09-02 13:48 | NUR ---
patient no longer on feedings this am due to pulling out NG tube, continue to monitor blood sugar due to Insulin coverage provided early this am by night shift supervisor, Shipping [employer] Receiving notified continue to monitor, accucheck 203mg/dl at this time. no coverage provided. patient is NPO and is not on any feedings.
--- NOTE | 2018-09-02 18:28 | NUR ---
NOT ABLE TO GIVE COREG DOSE DUE TO NO ACCESS TO GIVE MEDICATION, PT PULLED NG TUBE. WILL HAVE PEG PLACEMENT DONE TOMORROW. BLOOD SUGAR WAS 173, BUT COVERAGE NOT GIVEN DUE TO PATIENT BEING NPO.
--- NOTE | 2018-09-02 18:29 | NUR ---
Frequent pericare provided, reposition every 2 hours, off loading, visual checks q15min, patient in medical restraints continues to attempt to remove Oxygen and márquez catheter today. patient removed NG tube this am. patient with frequent skin checks and restraints released for ROM, patient assisted with care. skin remains intact, Bowel movement x2 today, loose. urine output 800ml. continue to provide safe environment, sitter at side.
--- NOTE | 2018-09-02 18:40 | NUR ---
patient evaluated by Gi, Dr Ruiz. patient scheduled for peg placement tomorrow 12pm, NPO post midnight, Contacted Daughter Bia, , informed daughter of procedure, she will be visiting her father in am and provide written consent.
[2018-09-02 19:00] VITALS: BP 133/66
--- NOTE | 2018-09-02 19:53 | NUR ---
PATIENT IS AWAKE IN BED, CONFUSED TRYING TO PULL OUT LINES. NO S/S OF PAIN AT THIS TIME, WILL CONTINUE TO MONITOR PATIENT
[2018-09-03] VITALS (11 sets, daily range): BP systolic 109–168; BP diastolic 53–73
[2018-09-03] MEDS: PIPERACILLIN/TAZOBACTAM/D5W 3.375 G in PREMIXED 1 EACH IV SCH ×3 (05:53→21:02)
[2018-09-03] MEDS: PANTOPRAZOLE ORAL SUSPENSION 40 MG SUSPDR.PKT NG SCH (05:53)
[2018-09-03] MEDS: BLOOD SUGAR DIAGNOSTIC 1 EACH STRIP VI SCH ×4 (06:00→23:24)
--- NOTE | 2018-09-03 06:36 | NUR ---
PATIENT SLEPT WELL THROUGHOUT THE SHIFT. NO S/S OF PAIN OR DISTRESS ON THIS SHIFT. SITTER REMAINS AT BEDSIDE FOR SAFETY
[2018-09-03 06:49] LABS: BASOPHILS # (AUTO) 0.1 K/uL (0.0-8.0); BASOPHILS % (AUTO) 1.2 % (0.0-2.0); EOSINOPHILS # (AUTO) 0.2 K/uL (0.0-0.7); EOSINOPHILS % (AUTO) 2.3 % (0.0-7.0); HEMATOCRIT 37.7 % (36.7-47.1); HEMOGLOBIN 11.9 g/dL (12.5-16.3); LYMPHOCYTES # (AUTO) 1.6 K/uL (20.0-40.0); LYMPHOCYTES % (AUTO) 20.3 % (20.5-51.5); MEAN CORPUSCULAR HEMOGLOBIN 27.4 uug (23.8-33.4); MEAN CORPUSCULAR HGB CONC 32 g/dL (32.5-36.3); MEAN CORPUSCULAR VOLUME 86.7 fL (73.0-96.2); MONOCYTES # (AUTO) 0.8 K/uL (2.0-10.0); MONOCYTES % (AUTO) 10.1 % (0.0-11.0); NEUTROPHILS # (AUTO) 5.1 K/uL (1.8-8.9); NEUTROPHILS % (AUTO) 66.1 % (38.5-71.5); PLATELET COUNT (AUTO) 339 K/uL (152-348); RED BLOOD CELL COUNT(AUTO) 4.34 MIL/uL (4.06-5.63); WHITE BLOOD COUNT (AUTO) 7.8 K/uL (3.6-10.2)
[2018-09-03 06:59] LABS: CARBON DIOXIDE 30 mmol/L (21-32); CHLORIDE 110 mmol/L (98-107); CREATININE 1.4 mg/dL (0.6-1.3); GLUCOSE 212 mg/dL (74-106); UREA NITROGEN, BLOOD 31 mg/dL (7-18)
[2018-09-03] MEDS: CARVEDILOL 6.25 MG TABLET PO SCH ×2 (07:48→18:06)
[2018-09-03] MEDS: ASPIRIN 81 MG TAB.CHEW PO SCH (07:53)
[2018-09-03] MEDS: Z GUARD REMEDY PASTE 57 GM TUBE TOP SCH ×2 (09:52→21:05)
--- NOTE | 2018-09-03 10:35 | NUR ---
patient scheduled for surgery this am, written consent obtained from patient family, Son, Florentino Boyd and Daughter in law , Bia. preop checklist completed. heplock in place.
--- NOTE | 2018-09-03 10:37 | NUR ---
PATIENT OFF FLOOR SURGERY AT THIS TIME.
[2018-09-03] MEDS ORDERED: IV NORMAL SALINE 250 ML BAG IV ONE (10:45)
--- NOTE | 2018-09-03 11:00 | NUR ---
ABSENT FROM UNIT, PATIENT LEFT FLOOR FOR SURGERY. Addendum: 09/03/18 at 1657 by KYRA ARREDONDO RN Amended: Links added.
--- NOTE | 2018-09-03 12:05 | NUR ---
patient returned from surgery patient with peg in place, 4x4 dressing noted with minimal sanguineous drainage, abdominal binder to cover. Patient reported Hypertensive in OR. continue to monitor at this time. no episodes of blood pressure at 160's recently. patient sleeping arousable. remains on 2 liters to 3 liters via nasal canula. remains with sitter at bedside patient unpredictable. continue to monitor. no distress noted. continues on air mattress, márquez catheter draining well.
--- NOTE | 2018-09-03 12:34 | NUR ---
patient blood pressure stabilizing 144/69 down from 168/73. continue to monitor.
--- NOTE | 2018-09-03 14:00 | NUR ---
patient continues with sitter at bedside pulling out IV today when releasing soft mittens for skin check and range of motion, new IV inserted , continue to provide frequent care reposition and off load, open hearth laborer set reposition q2hrs. márquez catheter draining continue to monitor
--- NOTE | 2018-09-03 16:11 | NUR ---
Patient received PEG for enteral nutrition. Recommended resume previous regime of Gucerna 1.2 @ goal rate of 70ml/hour x 20 hours. This would provide 1680 kcals, 84 gms protein, 1127 ml free water. Nursing will start @ 20ml/hour and increase as tolerated. No problems anticipated. Addendum: 09/03/18 at [address] Amended: Links added.
[2018-09-03] MEDS: GLUCERNA 1.2 1000ML LIQUID GT PRN (18:22)
[2018-09-03] MEDS: INSULIN REGULAR, HUMAN 300 UNIT/3 ML VIAL SQ PRN ×2 (18:23→23:25)
--- NOTE | 2018-09-03 19:38 | NUR ---
PATIENT IS AWAKE IN BED, AAOX1 WITH CONFUSION. NO S/S OF PAIN OR ACUTE DISTRESS ON ASSESSMENT. VSS STABLE, SITTER AT BEDSIDE FOR SAFETY
--- NOTE | 2018-09-03 20:00 | NUR ---
G-TUBE PLACE CHECKED, NO RESIDUAL. PATIENT TOLERATING FEEDING WELL
[2018-09-03] MEDS ORDERED: IRR STERIL WATER FOR IRR 1000 ML BOTTLE IR ONE (21:44)
[2018-09-03] MEDS ORDERED: IV NORMAL SALINE 1000 ML BAG IV ONE (21:44)
[2018-09-03] MEDS ORDERED: ETOMIDATE 20 MG/10 ML VIAL MC ONE (21:44)
--- NOTE | 2018-09-03 22:32 | NUR ---
INCREASED FEEDING BY 10 CC/HR ORDERED. PATIENT TOLERATING FEEDING WELL. ASPIRATION PRECAUTIONS IN PLACE, WILL CONTINUE TO MONITOR PATIENT
[2018-09-04] VITALS: BP 114/49
[2018-09-04 04:00] VITALS: BP 136/58
[2018-09-04] MEDS: PANTOPRAZOLE ORAL SUSPENSION 40 MG SUSPDR.PKT NG SCH (05:41)
[2018-09-04] MEDS: PIPERACILLIN/TAZOBACTAM/D5W 3.375 G in PREMIXED 1 EACH IV SCH ×3 (05:52→21:00)
[2018-09-04] MEDS: BLOOD SUGAR DIAGNOSTIC 1 EACH STRIP VI SCH ×4 (05:52→23:20)
[2018-09-04] MEDS: INSULIN REGULAR, HUMAN 300 UNIT/3 ML VIAL SQ PRN ×5 (05:54→23:21)
--- NOTE | 2018-09-04 06:21 | NUR ---
PATIENT SLEPT WELL ON THIS SHIFT, CONTINUES TO BE CONFUSED, SITTER AT BEDSIDE FOR SAFETY CONCERNS. TOLERATED FEEDING WELL. NO S/S OF PAIN OR ANY DISTRESS AT THIS TIME
--- NOTE | 2018-09-04 07:20 | NUR ---
RECEIVED REPORT FROM FUR MIXER NURSE, PATIENT IN BED, ASLEEP, NO DISTRESS NOTED AT THIS TIME, COHEN DRAINING, GTUBE OFF, AND PATIENT ON AIR MATTRESS. SITTER AT BEDSIDE, MITTENS ON BILATERAL ARMS.
[2018-09-04 07:30] VITALS: BP 139/66
[2018-09-04] MEDS: CARVEDILOL 6.25 MG TABLET PO SCH ×2 (08:44→17:37)
[2018-09-04] MEDS: ASPIRIN 81 MG TAB.CHEW PO SCH (08:44)
[2018-09-04] MEDS: Z GUARD REMEDY PASTE 57 GM TUBE TOP SCH ×2 (08:45→21:08)
--- NOTE | 2018-09-04 09:00 | NUR ---
reported to Juan Pablo Soto that patients lungs sound like they are crackles, chest xray ordered.
[2018-09-04] MEDS ORDERED: ASPIRIN 81 MG TAB.CHEW PO SCH (10:30)
[2018-09-04 15:51] VITALS: BP 118/59
[2018-09-04] MEDS: GLUCERNA 1.2 1000ML LIQUID GT PRN (16:26)
--- NOTE | 2018-09-04 18:47 | NUR ---
Patient has been cooperative with care, tolerated tube feeding, and márquez catheter changed after bleeding noted in the catheter. Currently patient in bed, bed inlow position, side rails up x2. bed alarm on. sitter at bedside, bilateral mittens on.
[2018-09-04 19:32] LABS: *BILIRUBIN,URIN NEGATIVE (NEGATIVE); *BLOOD, URINE 3+ (NEGATIVE); *KETONES,URINE TRACE (NEGATIVE); *UROBILINOGEN,URINE 0.2 E.U./dl (NORMAL); LEUKOCYTE ESTERASE ,URINE NEGATIVE (NEGATIVE); NITRITE, URINE NEGATIVE (NEGATIVE); UGLUCOSE NEGATIVE (NEGATIVE)
[2018-09-04 19:37] LABS: *CLARITY,URINE CLOUDY (CLEAR)
[2018-09-04 19:38] LABS: *COLOR,URINE DARK YELLOW (YELLOW)
[2018-09-04 19:40] LABS: MUCUS,URINE MANY /LPF (0-FEW); RBC,URINE 80-100 /HPF (0-3); SQUAMOUS EPITHELIAL CELL,UR FEW /HPF (NONE SEEN)
[2018-09-04 20:00] VITALS: BP 120/48
--- NOTE | 2018-09-04 20:06 | NUR ---
PATIENT IS ASLEEP BUT EASILY AROUSABLE, NO S/S OF PAIN OR ACUTE DISTRESS ON ASSESSMENT. G-TUBE PLACEMENT CHECKED NO RESIDUAL, ASPIRATION PRECAUTION IN PLACE. SAFETY MEASURES INITIATED, SITTER AT BEDSIDE FOR SAFETY
[2018-09-05 04:00] VITALS: BP 105/52
[2018-09-05] MEDS: PANTOPRAZOLE ORAL SUSPENSION 40 MG SUSPDR.PKT NG SCH (05:04)
[2018-09-05] MEDS: PIPERACILLIN/TAZOBACTAM/D5W 3.375 G in PREMIXED 1 EACH IV SCH ×3 (05:04→22:02)
[2018-09-05] MEDS: INSULIN REGULAR, HUMAN 300 UNIT/3 ML VIAL SQ PRN ×3 (05:12→17:13)
[2018-09-05] MEDS: BLOOD SUGAR DIAGNOSTIC 1 EACH STRIP VI SCH ×3 (05:13→17:07)
--- NOTE | 2018-09-05 07:44 | NUR ---
RECEIVED SHIFT REPORT FROM INDUSTRIAL EQUIPMENT MECHANIC NURSE. PATIENT IS ALERT AND ORIENTED TO SELF ONLY. SITTER AT BEDSIDE FOR SAFETY. PATIENT HAS MITTENS ON, WILL MONITOR SKIN AND CIRCULATION THROUGHOUT SHIFT. PATIENT HAS A PACEMAKER IN PLACE VPACING. PATIENT IS ON 2L OF OXYGEN VIA NASAL CANNULA. PATIENT HAS G-TUBE IN PLACE WITH ABDOMINAL BINDER, WILL ASSESS SKIN. PATIENT IS RUNNING GLUCERNA 1.2 AT A RATE OF 70, ON AT 10 OFF AT 6. SACRAL REDNESS NOTED, MAPLEX AND AIR MATTRESS IS THE PLAN OF CARE IMPLEMENTED. WILL CONTINUE TO TREAT INFECTION WITH ANTIBIOTICS AND MONITOR UNTIL STABLE. NO DISTRESS NOTED.
[2018-09-05] MEDS: CARVEDILOL 6.25 MG TABLET PO SCH (08:35)
[2018-09-05] MEDS: ASPIRIN 81 MG TAB.CHEW PO SCH (08:35)
[2018-09-05] MEDS: Z GUARD REMEDY PASTE 57 GM TUBE TOP SCH ×2 (08:36→22:11)
[2018-09-05] MEDS: ASPIRIN 81 MG TAB.CHEW GT SCH (08:59)
[2018-09-05] MEDS ORDERED: IPRATROPIUM BROMIDE 0.5 MG/2.5 ML NEBU NEB PRN (11:15)
[2018-09-05] MEDS ORDERED: ALBUTEROL SULFATE 2.5 MG/3 ML NEBU NEB PRN (11:15)
[2018-09-05 11:43] VITALS: BP 113/59
[2018-09-05 12:59] LABS: BASOPHILS # (AUTO) 0.2 K/uL (0.0-8.0); BASOPHILS % (AUTO) 0.9 % (0.0-2.0); EOSINOPHILS # (AUTO) 0.1 K/uL (0.0-0.7); EOSINOPHILS % (AUTO) 0.4 % (0.0-7.0); HEMATOCRIT 36.7 % (36.7-47.1); HEMOGLOBIN 11.6 g/dL (12.5-16.3); LYMPHOCYTES # (AUTO) 1.6 K/uL (20.0-40.0); LYMPHOCYTES % (AUTO) 8.4 % (20.5-51.5); MEAN CORPUSCULAR HEMOGLOBIN 27.1 uug (23.8-33.4); MEAN CORPUSCULAR HGB CONC 32 g/dL (32.5-36.3); MEAN CORPUSCULAR VOLUME 85.9 fL (73.0-96.2); MONOCYTES # (AUTO) 0.6 K/uL (2.0-10.0); MONOCYTES % (AUTO) 3.2 % (0.0-11.0); NEUTROPHILS # (AUTO) 16.6 K/uL (1.8-8.9); NEUTROPHILS % (AUTO) 87.1 % (38.5-71.5); PLATELET COUNT (AUTO) 351 K/uL (152-348); RED BLOOD CELL COUNT(AUTO) 4.27 MIL/uL (4.06-5.63); WHITE BLOOD COUNT (AUTO) 19.1 K/uL (3.6-10.2)
[2018-09-05 13:09] LABS: CARBON DIOXIDE 31 mmol/L (21-32); CHLORIDE 114 mmol/L (98-107); CREATININE 1.5 mg/dL (0.6-1.3); GLUCOSE 239 mg/dL (74-106); MAGNESIUM 2.1 mg/dL (1.8-2.4); POTASSIUM 3.7 mmol/L (3.5-5.1); UREA NITROGEN, BLOOD 31 mg/dL (7-18)
[2018-09-05 13:15] LABS: LYMPHOCYTES % (MANUAL) 9 % (20-40); MONOCYTES % (MANUAL) 2 % (2-10); NEUTROPHILS % (MANUAL) 89 % (42-75)
[2018-09-05 16:14] VITALS: BP 115/48
[2018-09-05] MEDS: CARVEDILOL 6.25 MG TABLET GT SCH (17:23)
--- NOTE | 2018-09-05 19:27 | NUR ---
REPORT GIVEN. PATIENT STABLE. CLOSE MONITORING NEEDED FOR NASAL CANNULA. FREQUENT SKIN ASSESSMENTS FOR MITTENS ALSO NEEDED. PATIENT IS ON GTUBE FEEDING, ABDOMINAL BINDER IN PLACE. ON AIR MATTRESS. BED IN LOW LOCKED POSITION.
--- NOTE | 2018-09-05 19:45 | NUR ---
RECEIVED PATIENT IN BED AWAKE NO S/S OF PAIN NOR DISCOMFORT, ABDOMINAL BINDER IN PLACE, ON OXYGEN 2 LPM NO S/S OF DESATURATION, TURN REPOSITION, COHEN PATENT DRAINING WITH YELLLOW COLOR URINE. PATIENT STILL TRIES TO PULLED OUT NASAL CANNULA TUBING, TRIES TO PULLLED OUT IV LINE, CONT ON 1;1 SITTER FOR SAFETY, TOLERATE GTF NO N/V NO DIARRHEA, NO CONGESTION NOTED, CONT TO MONITOR.
[2018-09-05 20:43] VITALS: BP 113/42
[2018-09-05] MEDS: ACETAMINOPHEN 650 MG SUPP.RECT RC PRN (23:04)
[2018-09-06] MEDS: BLOOD SUGAR DIAGNOSTIC 1 EACH STRIP VI SCH ×4 (00:55→17:34)
[2018-09-06] MEDS: INSULIN REGULAR, HUMAN 300 UNIT/3 ML VIAL SQ PRN ×4 (00:59→17:44)
[2018-09-06] MEDS: GLUCERNA 1.2 1000ML LIQUID GT PRN (02:44)
[2018-09-06 05:40] VITALS: BP 126/48
[2018-09-06] MEDS: PIPERACILLIN/TAZOBACTAM/D5W 3.375 G in PREMIXED 1 EACH IV SCH ×2 (05:56→14:05)
[2018-09-06] MEDS: PANTOPRAZOLE ORAL SUSPENSION 40 MG SUSPDR.PKT NG SCH (05:56)
[2018-09-06 06:29] LABS: BASOPHILS # (AUTO) 0.1 K/uL (0.0-8.0); BASOPHILS % (AUTO) 0.5 % (0.0-2.0); EOSINOPHILS # (AUTO) 0.2 K/uL (0.0-0.7); EOSINOPHILS % (AUTO) 1.1 % (0.0-7.0); HEMATOCRIT 35.6 % (36.7-47.1); HEMOGLOBIN 11.4 g/dL (12.5-16.3); LYMPHOCYTES # (AUTO) 1.2 K/uL (20.0-40.0); LYMPHOCYTES % (AUTO) 8.2 % (20.5-51.5); MEAN CORPUSCULAR HEMOGLOBIN 27.6 uug (23.8-33.4); MEAN CORPUSCULAR HGB CONC 32 g/dL (32.5-36.3); MEAN CORPUSCULAR VOLUME 85.9 fL (73.0-96.2); MONOCYTES # (AUTO) 0.5 K/uL (2.0-10.0); MONOCYTES % (AUTO) 3.6 % (0.0-11.0); NEUTROPHILS # (AUTO) 12.8 K/uL (1.8-8.9); NEUTROPHILS % (AUTO) 86.6 % (38.5-71.5); PLATELET COUNT (AUTO) 364 K/uL (152-348); RED BLOOD CELL COUNT(AUTO) 4.14 MIL/uL (4.06-5.63); WHITE BLOOD COUNT (AUTO) 14.8 K/uL (3.6-10.2)
[2018-09-06 06:59] LABS: CARBON DIOXIDE 32 mmol/L (21-32); CHLORIDE 116 mmol/L (98-107); CREATININE 1.5 mg/dL (0.6-1.3); MAGNESIUM 2.3 mg/dL (1.8-2.4); PHOSPHOROUS 3.8 mg/dL (2.5-4.9); POTASSIUM 3.8 mmol/L (3.5-5.1); UREA NITROGEN, BLOOD 35 mg/dL (7-18)
--- NOTE | 2018-09-06 07:09 | NUR ---
PATIENT AWAKE, RESPOND TO VERBAL AND TACTILE STIMULI, HOB ELEVATED, ON GTF TOLERATE NO NAUSEA NO VOMITING, NO CONGESTION NOTED, NO RESIDUAL NOTED, COHEN CATH PATENT DRAINING WITH YELLOW COLOR URINE IN MODERATE AMOUNT, ON OXYGEN 2LPM, OXYGEN SAT WNL, CONT ON 1;1 SITTER FOR SAFETY, EPISODES OF PULLING OUT IV LINE, GT TUBING. MEDICATED PATIENT WITH TYLENOL SUPP FOR PAIN AND DISCOMFORT, WITH EFFECTIVE RESULTS. WILL CONT TO MONITOR.
[2018-09-06 07:14] LABS: GLUCOSE 306 mg/dL (74-106)
[2018-09-06] MEDS: Z GUARD REMEDY PASTE 57 GM TUBE TOP SCH (08:22)
[2018-09-06] MEDS: ASPIRIN 81 MG TAB.CHEW GT SCH (08:22)
[2018-09-06] MEDS: CARVEDILOL 6.25 MG TABLET GT SCH ×2 (08:22→17:34)
[2018-09-06 09:16] LABS: ABG BASE EXCESS 6.9 mmol/L; ABG HCO3 31.6 mmol/L; ABG PH 7.464 (7.350-7.450); ABG PO2 101.9 mmHg (75.0-100.0); ABG SITE LEFT RADIAL; ABG TOTAL HEMOGLOBIN 12.6 G/dL (13.5-18.0); COHb 1.7 % (0.5-1.5); MetHb 0.3 % (0.0-1.5); VENT MODE Nasal Cannula
[2018-09-06 11:00] VITALS: BP 129/57
[2018-09-06] MEDS ORDERED: PANT40SU2 NG (15:31)
[2018-09-06] MEDS ORDERED: ALBU2.5V7 NEB (15:31)
[2018-09-06] MEDS ORDERED: CARV6.252 GT (15:31)
[2018-09-06] MEDS ORDERED: INSU100V28 SQ (15:31)
[2018-09-06] MEDS ORDERED: IPRA0.2S6 NEB (15:31)
[2018-09-06] MEDS ORDERED: NUT.237L30 GT (15:31)
[2018-09-06] MEDS ORDERED: ACET650S24 RC (15:31)
[2018-09-06] MEDS ORDERED: ASPI81TA31 GT (15:31)
[2018-09-06] MEDS ORDERED: Blood Sugar Diagnostic VI (15:31)
[2018-09-06 15:50] VITALS: BP 135/55
[2018-09-06 17:34] VITALS: BP 128/68
--- NOTE | 2018-09-06 19:00 | NUR ---
PATIENT IS IN BED RESTING COMFORTABLY. PATIENT REMAINS IN STABLE CONDITION WITHOUT ANY PAIN OR DISCOMFORT AT THIS TIME. PATIENTS VITAL SIGNS ARE WITHIN NORMAL LIMITS. PATIENT IS TO BE DISCHARGED LATER ON TONIGHT VIA AMBULANCE APPROXIMATELY AROUND 2029. PATIENT TOLERATED MEDICATION WELL AND IS COMPLIANT WITH MEDICATIONS ADMINISTRATION AND MEDICAL REGIMEN. WILL CONTINUE TO MONITOR. PLAN OF CARE WILL BE ENDORSED TO CONSULTING PROPERTY MANAGER NURSE.
--- NOTE | 2018-09-06 21:51 | NUR ---
PATIENT DISCHARGE TO [facility], AM RN TO WILL RN. PATIENT IN STABLE CONDITION.
[2018-09-15] MEDS ORDERED: PIPE3.376 IV (12:57)
[2018-09-15] MEDS ORDERED: NUT.237L30 GT (12:57)
[2018-09-15] MEDS ORDERED: ASPI81TA31 PO (18:31)
== END 2018-09-06 21:45 | DRG 64 ==
LOC: ER 20:01 → TELE 22:43 → CCU 08-27 13:57 → TELE 08-30 14:44 → MED 09-04 10:20
PROVIDERS: ADMIT Internal Medicine; ATTEND Nurse Practitioner Acute Care
PROC: 0DH67UZ Insertion of Feeding Device into Stomach, Via Natural or Artificial Opening (ICD-10-PCS; principal; 2018-08-25)
PROC: 0DH63UZ Insertion of Feeding Device into Stomach, Percutaneous Approach (ICD-10-PCS; 2018-09-03)
PROC: 0DJ08ZZ Inspection of Upper Intestinal Tract, Via Natural or Artificial Opening Endoscopic (ICD-10-PCS; 2018-09-03)
DX: I63.512 Cerebral infarction due to unspecified occlusion or stenosis of left middle cerebral artery (principal); I21.A1 Myocardial infarction type 2; I61.1 Nontraumatic intracerebral hemorrhage in hemisphere, cortical; I50.43 Acute on chronic combined systolic (congestive) and diastolic (congestive) heart failure; G81.04 Flaccid hemiplegia affecting left nondominant side; G93.40 Encephalopathy, unspecified; N39.0 Urinary tract infection, site not specified; E87.2 Acidosis; I13.0 Hypertensive heart and chronic kidney disease with heart failure and stage 1 through stage 4 chronic kidney disease, or unspecified chronic kidney disease; N17.9 Acute kidney failure, unspecified; I42.9 Cardiomyopathy, unspecified; J98.11 Atelectasis; E87.0 Hyperosmolality and hypernatremia; I70.0 Atherosclerosis of aorta; R47.01 Aphasia; R13.10 Dysphagia, unspecified; R29.706 NIHSS score 6; E11.65 Type 2 diabetes mellitus with hyperglycemia; Z79.84 Long term (current) use of oral hypoglycemic drugs; K29.70 Gastritis, unspecified, without bleeding; K21.9 Gastro-esophageal reflux disease without esophagitis; T38.3X5A Adverse effect of insulin and oral hypoglycemic [antidiabetic] drugs, initial encounter; Y92.019 Unspecified place in single-family (private) house as the place of occurrence of the external cause; I48.2 Chronic atrial fibrillation; R62.7 Adult failure to thrive; Z95.0 Presence of cardiac pacemaker; Z95.1 Presence of aortocoronary bypass graft; I25.10 Atherosclerotic heart disease of native coronary artery without angina pectoris; E11.22 Type 2 diabetes mellitus with diabetic chronic kidney disease; N18.3 Chronic kidney disease, stage 3 (moderate); T50.2X5A Adverse effect of carbonic-anhydrase inhibitors, benzothiadiazides and other diuretics, initial encounter; T46.5X5A Adverse effect of other antihypertensive drugs, initial encounter; Z85.46 Personal history of malignant neoplasm of prostate; I27.20 Pulmonary hypertension, unspecified; I08.3 Combined rheumatic disorders of mitral, aortic and tricuspid valves; Z87.891 Personal history of nicotine dependence; Z91.19 Patient's noncompliance with other medical treatment and regimen; Z82.49 Family history of ischemic heart disease and other diseases of the circulatory system; M89.9 Disorder of bone, unspecified; E78.5 Hyperlipidemia, unspecified; D64.9 Anemia, unspecified
CPT/HCPCS: 36415; 36600; 70030-TC; 70450; 71045; 80307; 83550; 83605; 83735; 84100; 84156; 84443; 85025; 85651; 85730; 86592; 87040; 87086; 87400; 92526; 92610; 93005; 93307; 93880; 97110; 97112; 97165; 97530; A4217; A4663; C9113; G0378; G0480; G0480-TC; J0696; J1815; J1940; J2270; J2543; J3475; J3480; J3490; J7030; J7040; J7042; J7050; J7060

== ENCOUNTER 2018-09-08 19:43 | Emergency (ER) | payer MEDICARE, OTHER ==
[~2018-09-08] VITALS: Ht 165.1 cm; Wt 65.8 kg
[~2018-09-08 19:43] MED LIST: ACET650S24 RC; ALBU2.5V7 NEB; ASPI-605 PO; ASPI81TA31 GT; ATOR40TA PO; Blood Sugar Diagnostic VI; CARB-93 PO; CARV6.252 GT; CHOL10005 PO; CYAN-51 PO; DONE10TA44 PO; FOLI1TAB16 PO; GABA-534 PO; GLIM2TAB2 PO; INSU100V28 SQ; IPRA0.2S6 NEB; LOSA1TAB36 PO; MAGN400C PO; MEMA28CA5 PO; METF-440 PO; METO25TA6 PO; NUT.237L30 GT; OMEP20CA11 PO; PANT40SU2 NG; SITA50TA PO
[2018-09-08] MEDS ORDERED: DIATR MEGLU/DIATRIZOATE SODIUM 30 ML SOLUTION ONE (20:16)
--- NOTE | 2018-09-08 20:25 | NUR ---
GAVE SBAR REPORT TO RAVEN NURSE FROM [facility]
[2018-09-08 20:29] VITALS: BP 128/61
--- NOTE | 2018-09-08 20:29 | NUR ---
TRANSFERED BACK TO SNF BY PRIVATE AMBULANCE THAT TOOK PATIENT TO ER
[2018-09-15] MEDS ORDERED: NUT.237L30 GT (12:57)
[2018-09-15] MEDS ORDERED: PIPE3.376 IV (12:57)
[2018-09-15] MEDS ORDERED: ASPI81TA31 PO (18:31)
== END 2018-09-08 20:30 | disposition home or self-care (01) ==
LOC: ER 19:43
DX: K94.23 Gastrostomy malfunction (principal); Z95.0 Presence of cardiac pacemaker; Z79.82 Long term (current) use of aspirin; Z79.899 Other long term (current) drug therapy; Z79.4 Long term (current) use of insulin
CPT/HCPCS: 74018; A4663; Q9963

== ENCOUNTER 2018-09-10 21:38 | Inpatient (IN) | payer MEDICARE, OTHER ==
[~2018-09-10] VITALS: Ht 170.2 cm; Wt 59.4 kg
[~2018-09-10 21:38] MED LIST changes: -ASPI-605 PO; -ATOR40TA PO; -CARB-93 PO; -CHOL10005 PO; -CYAN-51 PO; -DONE10TA44 PO; -FOLI1TAB16 PO; -GABA-534 PO; -GLIM2TAB2 PO; -LOSA1TAB36 PO; -MAGN400C PO; -MEMA28CA5 PO; -METF-440 PO; -METO25TA6 PO; -OMEP20CA11 PO; -SITA50TA PO
--- NOTE | 2018-09-10 21:45 | NUR ---
Pt brought in by private ambulance from [facility] with c/o high blood sugar of 583 at approximately 1800 today. Pt was given 12 units of Humalog at 1830 per report. Pt has márquez catheter & G-tube in place. Pt on 4L 02 with SA02 98% room air. Pt is nonverbal, has hx of CVA, rt hemiplegia. Pt placed on night monitor, paced rhythm. Safety measures implemented. Family at bedside.
[2018-09-10] MEDS: IV NORMAL SALINE 1000 ML BAG IV ONE ×2 (22:10→22:35)
[2018-09-10] MEDS ORDERED: SENN-168 GT (22:13)
[2018-09-10] MEDS ORDERED: NA P133E RC (22:13)
[2018-09-10] MEDS ORDERED: DOCU100C36 GT (22:13)
[2018-09-10] MEDS ORDERED: CARV6.252 GT (22:13)
[2018-09-10] MEDS ORDERED: humulin R SUBCUT (22:13)
[2018-09-10] MEDS ORDERED: BISA10SU61 RC (22:13)
[2018-09-10] MEDS ORDERED: MAGN400O6 GT (22:13)
[2018-09-10] MEDS ORDERED: LEVOFLOXACIN 500 MG/D5W 100ML PIGGYBACK IV ONE (22:15)
[2018-09-10 22:20] LABS: BASOPHILS # (AUTO) 0.2 K/uL (0.0-8.0); BASOPHILS % (AUTO) 1.4 % (0.0-2.0); EOSINOPHILS % (AUTO) 0.3 % (0.0-7.0); HEMATOCRIT 38.1 % (36.7-47.1); HEMOGLOBIN 11.8 g/dL (12.5-16.3); LYMPHOCYTES # (AUTO) 0.9 K/uL (20.0-40.0); LYMPHOCYTES % (AUTO) 7.3 % (20.5-51.5); MEAN CORPUSCULAR HEMOGLOBIN 27.4 uug (23.8-33.4); MEAN CORPUSCULAR HGB CONC 31 g/dL (32.5-36.3); MEAN CORPUSCULAR VOLUME 88.7 fL (73.0-96.2); MONOCYTES # (AUTO) 0.6 K/uL (2.0-10.0); MONOCYTES % (AUTO) 4.6 % (0.0-11.0); NEUTROPHILS # (AUTO) 11.2 K/uL (1.8-8.9); NEUTROPHILS % (AUTO) 86.4 % (38.5-71.5); PLATELET COUNT (AUTO) 531 K/uL (152-348)
[2018-09-10 22:25] LABS: CARBON DIOXIDE 34 mmol/L (21-32); CHLORIDE 123 mmol/L (98-107); CREATININE 1.7 mg/dL (0.6-1.3); POTASSIUM 4.6 mmol/L (3.5-5.1); UREA NITROGEN, BLOOD 69 mg/dL (7-18)
[2018-09-10 22:28] LABS: GLUCOSE 505 mg/dL (74-106)
[2018-09-10] MEDS ORDERED: LEVOFLOXACIN 500 MG/D5W 100 ML ONE (22:29)
[2018-09-10 22:34] LABS: ALANINE AMINOTRANSFERASE 121 U/L (16-63); ALKALINE PHOSPHATASE 575 U/L (50-136); ASPARTATE AMINOTRANSFERASE 68 U/L (15-37); BILIRUBIN,DIRECT 0.2 mg/dL (0.0-0.2); BILIRUBIN,TOTAL 0.5 mg/dL (0.2-1.0); TOTAL PROTEIN, SERUM 7.2 g/dL (6.4-8.2)
[2018-09-10 22:42] LABS: *BILIRUBIN,URIN NEGATIVE (NEGATIVE); *BLOOD, URINE 3+ (NEGATIVE); *CLARITY,URINE SLIGHTLY CLOUDY (CLEAR); *COLOR,URINE YELLOW (YELLOW); *KETONES,URINE TRACE (NEGATIVE); *UROBILINOGEN,URINE 0.2 E.U./dl (NORMAL); LEUKOCYTE ESTERASE ,URINE NEGATIVE (NEGATIVE); NITRITE, URINE NEGATIVE (NEGATIVE)
[2018-09-10 22:44] LABS: UGLUCOSE 3+ (NEGATIVE)
--- NOTE | 2018-09-10 22:45 | NUR ---
Paged [employer] for panel call. Pending call back from Juhi Padilla NP.
--- NOTE | 2018-09-10 22:46 | NUR ---
Dr. Ritesh TURNER MD speaking to Juhi Padilla NP on telephone
[2018-09-10 22:48] LABS: BACTERIA,URINE NONE SEEN /HPF (NONE SEEN); RBC,URINE 80-100 /HPF (0-3); WBC,URINE 0-3 /HPF (0-3)
[2018-09-10 22:49] LABS: SQUAMOUS EPITHELIAL CELL,UR FEW /HPF (NONE SEEN)
--- NOTE | 2018-09-10 23:26 | NUR ---
Pt. admitted to Telemetry (CCU Bed 5), under care of Juhi Padilla NP. Diagnosis: Pneumonia, Hyperglycemia, Dehydration Belongs List completed. MRSA swab done.
--- NOTE | 2018-09-10 23:28 | NUR ---
IV removed accidentally. Catheter intact and site benign. Pressure and 4x4 gauze applied to site. No bleeding noted. IV placed at Rt hand 20 gauge.
--- NOTE | 2018-09-10 23:52 | NUR ---
Per Dr. Ritesh TURNER MD, pt does not meet Sepsis criteria.
[2018-09-11] VITALS (8 sets, daily range): BP systolic 105–146; BP diastolic 51–66
[2018-09-11] MEDS ORDERED: HYDROCODONE/APAP 5-325MG TABLET PO PRN (01:00)
[2018-09-11] MEDS ORDERED: ONDANSETRON 4 MG/2 ML VIAL IV PRN (01:00)
[2018-09-11] MEDS ORDERED: Z GUARD REMEDY PASTE 57 GM TUBE TOP PRN (01:00)
[2018-09-11] MEDS ORDERED: ZOLPIDEM 5 MG TABLET PO PRN (01:00)
[2018-09-11] MEDS ORDERED: IV D5/ 0.9% NACL 1,000 ML IV PRN (01:00)
[2018-09-11] MEDS ORDERED: ACETAMINOPHEN 325 MG TABLET PO PRN (01:00)
[2018-09-11] MEDS ORDERED: DEXTROSE 50% 50 ML DISP.SYRIN IV PRN (01:15)
[2018-09-11] MEDS ORDERED: ALBUTEROL SULFATE 2.5 MG/3 ML NEBU NEB PRN (01:15)
[2018-09-11] MEDS ORDERED: INSULIN REGULAR, HUMAN 300 UNIT/3 ML VIAL SQ ONE (01:30)
[2018-09-11] MEDS ORDERED: INSULIN REGULAR, HUMAN 300 UNIT/3 ML VIAL ONE (01:36)
[2018-09-11 06:21] LABS: BASOPHILS # (AUTO) 0.1 K/uL (0.0-8.0); BASOPHILS % (AUTO) 1.1 % (0.0-2.0); CARBON DIOXIDE 32 mmol/L (21-32); CREATININE 1.4 mg/dL (0.6-1.3); EOSINOPHILS # (AUTO) 0.1 K/uL (0.0-0.7); EOSINOPHILS % (AUTO) 1.1 % (0.0-7.0); HEMATOCRIT 36.2 % (36.7-47.1); HEMOGLOBIN 11.2 g/dL (12.5-16.3); LYMPHOCYTES # (AUTO) 1.1 K/uL (20.0-40.0); LYMPHOCYTES % (AUTO) 8.7 % (20.5-51.5); MEAN CORPUSCULAR HEMOGLOBIN 27.2 uug (23.8-33.4); MEAN CORPUSCULAR HGB CONC 31 g/dL (32.5-36.3); MEAN CORPUSCULAR VOLUME 88.2 fL (73.0-96.2); MONOCYTES # (AUTO) 0.7 K/uL (2.0-10.0); MONOCYTES % (AUTO) 5.4 % (0.0-11.0); NEUTROPHILS # (AUTO) 10.1 K/uL (1.8-8.9); NEUTROPHILS % (AUTO) 83.7 % (38.5-71.5); PHOSPHOROUS 3.2 mg/dL (2.5-4.9); PLATELET COUNT (AUTO) 442 K/uL (152-348); POTASSIUM 3.9 mmol/L (3.5-5.1); UREA NITROGEN, BLOOD 61 mg/dL (7-18); WHITE BLOOD COUNT (AUTO) 12.1 K/uL (3.6-10.2)
[2018-09-11] MEDS: BLOOD SUGAR DIAGNOSTIC 1 EACH STRIP VI SCH ×3 (06:40→18:22)
[2018-09-11] MEDS: INSULIN REGULAR, HUMAN 300 UNIT/3 ML VIAL SQ PRN ×3 (06:41→18:27)
[2018-09-11] MEDS: CARVEDILOL 6.25 MG TABLET GT SCH ×2 (08:20→18:14)
[2018-09-11 09:33] LABS: CHLORIDE 127 mmol/L (98-107); GLUCOSE 339 mg/dL (74-106)
--- NOTE | 2018-09-11 12:35 | NUR ---
EVGENY Padilla here to see pt. Full report given. New orders received and carried out.
[2018-09-11] MEDS: IV D5W 1000ML 1,000 ML IV PRN (13:04)
[2018-09-11] MEDS ORDERED: GLUCERNA 1.2 1000ML LIQUID GT PRN (16:30)
[2018-09-11] MEDS: GLUCERNA 1.2 1000ML LIQUID GT PRN (17:00)
--- NOTE | 2018-09-11 20:39 | NUR ---
Initial rounds made patient resting comfortably with HOB elevated 45 degrees. Oxygen continuous via nasal cannula @ 3 liters. No signs of respiratory distress, respirations even and nonlabored. IV site without signs of infiltration. Bed linens checked and patient noted to be clean, no signs of bowel incontinence. Extremities with offloading via pillows. [place] to dependent drainage. Patient afebrile, vital signs checked and reviewed.
--- NOTE | 2018-09-11 22:00 | NUR ---
RECEIVED PT FROM CCU VIA GURNEY. PT SHOWS NO SIGNS OF ACUTE DISTRESS. UNDER DR LAMAS.DX: HYPERGLYCEMIA/DEHYDRATION. BELONGING LIST DONE.PHOTO TAKEN ON HIS MIDBACK AND SACRUM. SAFETY AND COMFORT PROVIDED.CALL LIGHT WITHIN REACH. SHELTER ASSESSMENT DONE.WILL CONTINUE TO MONITOR.
[2018-09-11] MEDS ORDERED: LEVOFLOXACIN 750MG/D5W 750 MG in PREMIXED 1 EACH IV SCH (23:00)
[2018-09-12] VITALS: BP 137/46
[2018-09-12] MEDS: BLOOD SUGAR DIAGNOSTIC 1 EACH STRIP VI SCH ×4 (01:07→18:55)
[2018-09-12] MEDS: INSULIN REGULAR, HUMAN 300 UNIT/3 ML VIAL SQ PRN ×4 (01:10→18:57)
[2018-09-12 04:00] VITALS: BP 133/52
[2018-09-12] MEDS: IV D5W 1000ML 1,000 ML IV PRN ×2 (04:58→22:49)
--- NOTE | 2018-09-12 06:15 | NUR ---
PT SLEPT INTERMITTENTLY. PT SHOWS NO SIGNS OF ACUTE DISTRESS. PRESCRIBED MEDICATION GIVEN AND PT TOLERATED IT WELL.G-TUBE INFUSING.COHEN CATH INTACT. PT TOLERATED IT WELL. PT AFEBRILE OF THE MOMENT. PT WAS GIVEN TYLENOL AND COOLING MEASURES.PT TURNED AND REPOSITIONED. IV SITE INTACT.CALL LIGHT WITHIN REACH. BED ALARM ON. SAFETY AND COMFORT PROVIDED. ALL NEEDS ARE MET.WILL ENDORSE ACCORDINGLY TO INCOMING NURSE FOR CONTINUITY OF CARE.
--- NOTE | 2018-09-12 07:15 | NUR ---
PT OBSERVED TO HAVE PULLED OUT HIS PEG TUBE. FELLOW RN INSERTED COHEN CATH 16 GAUGE FOR THE OPENING NOT TO BE CLOSE. PT STABLE. IN NO ACUTE DISTRESS. SAFETY AND COMFORT PROVIDED.
--- NOTE | 2018-09-12 07:20 | NUR ---
patient received this am in bed on Tele, patient pulled out PEG, 16Fr márquez catheter placed to make sure site does not close, will inform Hose Builder. patient in no distress at this time, patient continues to try to remove lines, pull on tubes, patient with high risk skin integrity issues, will order first step mattress and implement repositioning measures. continue to monitor patient maintain safety precautions.
--- NOTE | 2018-09-12 07:20 | NUR ---
TYRONE JAIME N.P. NOTIFIED OF BLOOD GAS VALUES NO NEW ORDERS AT THIS TIME. Addendum: 09/12/18 at 2010 by KYRA ARREDONDO RN REPORTED TO NNeidaPNeida AT [id number] NOT [id number]. CORRECTION ON NOTE
[2018-09-12] MEDS: CARVEDILOL 6.25 MG TABLET GT SCH ×2 (08:25→18:45)
--- NOTE | 2018-09-12 08:25 | NUR ---
Fawad Dao.Alen. aware of patient pulling out PEG, she will notify GI. continue to monitor
[2018-09-12] MEDS: ASPIRIN 81 MG TAB.CHEW PO SCH (08:26)
--- NOTE | 2018-09-12 08:50 | NUR ---
AM MEDS unable to administer PEG meds, no access at this time, patient with márquez in place of peg pulled out this am, awaiting GI to follow up with patient .
[2018-09-12] MEDS ORDERED: LEVOFLOXACIN 750MG/D5W 750 MG in PREMIXED 1 EACH IV SCH (09:00)
--- NOTE | 2018-09-12 09:03 | NUR ---
No flush done at this time, patient pulled out peg awaiting GI to see patient Addendum: 09/12/18 at 0904 by KYRA ARREDONDO RN Amended: Links added.
[2018-09-12 09:30] VITALS: BP 140/55
--- NOTE | 2018-09-12 09:30 | NUR ---
PATIENT ASSISTED WITH CARE THIS AM, REPOSITIONED EVERY 2 HOURS, OFF LOADING BLE, MEPELEX PLACED ON SACRUM AND LOWER PART OF BACK (SPINE), PATIENT PROVIDED WITH ORAL CARE, PATIENT ASSESSED FOR SKIN INTEGRITY, SOFT RESTRAINTS IN PLACE PATIENT CONTINUES TO TRY AND PULL ON TUBING. PATIENT COHEN CATHETER DRAINING, COHEN CATHETER CARE RENDERED. PATIENT CALL LIGHT WITHIN REACH CONTINUE TO MONITOR FREQUENTLY.
--- NOTE | 2018-09-12 10:20 | NUR ---
DISCUSSED WITH TYRONE JAIME N.P., PATIENT MEDS PATIENT CURRENTLY ON ASA 81MG PATIENT WITH HISTORY OF HEMORRHAGIC STROKE, ASA 81MG ORDERED BY CARDIOLOGY, STEAM TRAIN DRIVER TO DISCUSS WITH CARDIO, HOLD MEDS AT THIS TIME.
--- NOTE | 2018-09-12 11:00 | NUR ---
PATIENT NOW ON AIR MATTRESS CONTINUE TO REPOSITION PATIENT EVERY 2 HOURS OFF LOAD BLE. CONTINUE TO MONITOR
[2018-09-12] MEDS ORDERED: DIATR MEGLU/DIATRIZOATE SODIUM 30 ML SOLUTION ONE ×2 (11:18→17:51)
[2018-09-12 12:25] VITALS: BP 149/60
[2018-09-12 12:26] LABS: BASOPHILS # (AUTO) 0.1 K/uL (0.0-8.0); BASOPHILS % (AUTO) 0.5 % (0.0-2.0); EOSINOPHILS % (AUTO) 0.2 % (0.0-7.0); HEMATOCRIT 37.5 % (36.7-47.1); HEMOGLOBIN 11.7 g/dL (12.5-16.3); LYMPHOCYTES # (AUTO) 1.5 K/uL (20.0-40.0); LYMPHOCYTES % (AUTO) 9.9 % (20.5-51.5); MEAN CORPUSCULAR HEMOGLOBIN 27.2 uug (23.8-33.4); MEAN CORPUSCULAR HGB CONC 31 g/dL (32.5-36.3); MEAN CORPUSCULAR VOLUME 86.8 fL (73.0-96.2); MONOCYTES # (AUTO) 0.6 K/uL (2.0-10.0); MONOCYTES % (AUTO) 4.1 % (0.0-11.0); NEUTROPHILS # (AUTO) 12.8 K/uL (1.8-8.9); NEUTROPHILS % (AUTO) 85.3 % (38.5-71.5); PLATELET COUNT (AUTO) 449 K/uL (152-348); RED BLOOD CELL COUNT(AUTO) 4.32 MIL/uL (4.06-5.63); WHITE BLOOD COUNT (AUTO) 15.1 K/uL (3.6-10.2)
[2018-09-12 12:34] LABS: ALANINE AMINOTRANSFERASE 221 U/L (16-63); ALKALINE PHOSPHATASE 810 U/L (50-136); ASPARTATE AMINOTRANSFERASE 274 U/L (15-37); BILIRUBIN,TOTAL 0.9 mg/dL (0.2-1.0); CARBON DIOXIDE 30 mmol/L (21-32); CHLORIDE 119 mmol/L (98-107); CREATININE 1.2 mg/dL (0.6-1.3); POTASSIUM 3.6 mmol/L (3.5-5.1); TOTAL PROTEIN, SERUM 6.6 g/dL (6.4-8.2); UREA NITROGEN, BLOOD 35 mg/dL (7-18)
[2018-09-12 12:43] LABS: GLUCOSE 301 mg/dL (74-106)
--- NOTE | 2018-09-12 13:00 | NUR ---
Juhi Padilla N.P. aware of critical lab values Na 157, Glucose 301.
--- NOTE | 2018-09-12 13:55 | NUR ---
WOUND CARE CONSULT: PT PRESENTS WITH INTACT DEEP TISSUE INJURY TO SACRUM, PRESENT ON ADMISSION. RECOMMENDATIONS MADE FOR SKIN PROTECTION AND WOUND CARE. DISCUSSED WITH NURSING STAFF. PT ON FIRST STEP [facility]. WILL SEE PRN. RING IN AGREEMENT WITH PLAN OF CARE. Addendum: 09/12/18 at 1356 by DAYNA TREADWELL RN Amended: Links added.
--- NOTE | 2018-09-12 15:30 | NUR ---
Juhi Padilla N.P. notified of Lactic Acid 2.7. no new orders received.
[2018-09-12] MEDS: ACETYLCYSTEINE 10% 4ML VIAL NEB SCH ×2 (16:27→23:28)
[2018-09-12 16:30] VITALS: BP 157/54
--- NOTE | 2018-09-12 18:34 | NUR ---
Fawad Dao.Alen. notified of lactic acid 3.1. patient with temp 100.9 at 1630pm, down to 99.6 at this time with cooling measures, seems to continue to have some labored breathing compared to this am. Orders received for arterial blood gas now. orders repeated back to magnetic resonance imaging coordinator.
--- NOTE | 2018-09-12 18:45 | NUR ---
NO ACCESS AT THIS TIME FOR [facility] [employer].
[2018-09-12 19:02] LABS: ABG BASE EXCESS 4.8 mmol/L; ABG HCO3 28.1 mmol/L; ABG PCO2 36.8 mmHg (35.0-45.0); ABG PO2 56.5 mmHg (75.0-100.0); ABG SITE LEFT BRACHIAL; ABG TOTAL HEMOGLOBIN 12.9 G/dL (13.5-18.0); COHb 1.8 % (0.5-1.5); MetHb 0.2 % (0.0-1.5); O2Hb 88.9 % (94.0-97.0); VENT MODE Nasal Cannula
--- NOTE | 2018-09-12 19:20 | NUR ---
Fawad FOY.Alen. NOTIFIED OF BLOOD GAS VALUES NO NEW ORDERS AT THIS TIME.
[2018-09-12 20:00] VITALS: BP 145/51
[2018-09-12] MEDS ORDERED: NS IV ONE (20:00)
[2018-09-12] MEDS: ALBUTEROL SULFATE 2.5 MG/ 0.5 ML NEBU NEB SCH ×2 (20:37→23:28)
[2018-09-12] MEDS: IPRATROPIUM BROMIDE 0.5 MG/2.5 ML NEBU NEB SCH ×2 (20:37→23:28)
[2018-09-12 21:21] LABS: ALANINE AMINOTRANSFERASE 196 U/L (16-63); ALKALINE PHOSPHATASE 749 U/L (50-136); ASPARTATE AMINOTRANSFERASE 207 U/L (15-37); BILIRUBIN,DIRECT 0.6 mg/dL (0.0-0.2); BILIRUBIN,TOTAL 1.3 mg/dL (0.2-1.0); CARBON DIOXIDE 31 mmol/L (21-32); CHLORIDE 119 mmol/L (98-107); CREATININE 1.2 mg/dL (0.6-1.3); GLUCOSE 248 mg/dL (74-106); POTASSIUM 3.6 mmol/L (3.5-5.1); TOTAL PROTEIN, SERUM 6.4 g/dL (6.4-8.2); UREA NITROGEN, BLOOD 29 mg/dL (7-18)
[2018-09-12] MEDS ORDERED: PIPERACILLIN/TAZOBACTAM/D5W 3.375 G in PREMIXED 1 EACH IV SCH (22:00)
[2018-09-12] MEDS: PIPERACILLIN/TAZOBACTAM/D5W 3.375 G in PREMIXED 1 EACH IV SCH (22:44)
[2018-09-13] VITALS (12 sets, daily range): BP systolic 94–139; BP diastolic 40–75
[2018-09-13] MEDS: BLOOD SUGAR DIAGNOSTIC 1 EACH STRIP VI SCH ×4 (00:01→19:07)
[2018-09-13] MEDS: INSULIN REGULAR, HUMAN 300 UNIT/3 ML VIAL SQ PRN ×4 (00:08→19:07)
--- NOTE | 2018-09-13 00:45 | NUR ---
Called [facility] radiology multiple times during the night, they stated that the abdominal x-ray was already resulted at 1900, but we are unable to see the results on the computer. the results were physical faxed and shown to Juhi Padilla, Juhi Padilla stated to not use the g tube.
--- NOTE | 2018-09-13 02:10 | NUR ---
Dr Maki at bedside, tried to reinsert the G tube, the g tube was removed, area cleaned, G-tube was cleaned and reinserted. pt was tolerated it well, abd binder back in place. Dr Maki reviewed last abd x-ray and stated will discuss with Juhi Padilla for plan of action.
[2018-09-13] MEDS: IPRATROPIUM BROMIDE 0.5 MG/2.5 ML NEBU NEB SCH ×6 (02:31→23:11)
[2018-09-13] MEDS: ALBUTEROL SULFATE 2.5 MG/ 0.5 ML NEBU NEB SCH ×6 (02:31→23:11)
[2018-09-13] MEDS ORDERED: FENTANYL CITRATE 100 MCG/2 ML AMPUL ONE (03:28)
--- NOTE | 2018-09-13 03:50 | NUR ---
Pt is to be taken down for g tube replacement via surgical intervention, Juhi Padilla call and notified the pt family that the pt will be going to surgery at this time. pt transferred out to OR at 0350. all needs met, safety measures are in place.
[2018-09-13] MEDS: PIPERACILLIN/TAZOBACTAM/D5W 3.375 G in PREMIXED 1 EACH IV SCH ×3 (05:31→21:48)
[2018-09-13 06:25] LABS: BASOPHILS # (AUTO) 0.1 K/uL (0.0-8.0); BASOPHILS % (AUTO) 0.4 % (0.0-2.0); EOSINOPHILS # (AUTO) 0.1 K/uL (0.0-0.7); EOSINOPHILS % (AUTO) 0.5 % (0.0-7.0); HEMATOCRIT 36.3 % (36.7-47.1); HEMOGLOBIN 11.3 g/dL (12.5-16.3); LYMPHOCYTES # (AUTO) 1.1 K/uL (20.0-40.0); LYMPHOCYTES % (AUTO) 6.9 % (20.5-51.5); MEAN CORPUSCULAR HEMOGLOBIN 26.8 uug (23.8-33.4); MEAN CORPUSCULAR HGB CONC 31 g/dL (32.5-36.3); MEAN CORPUSCULAR VOLUME 86.3 fL (73.0-96.2); MONOCYTES # (AUTO) 0.5 K/uL (2.0-10.0); MONOCYTES % (AUTO) 2.9 % (0.0-11.0); NEUTROPHILS # (AUTO) 14.8 K/uL (1.8-8.9); NEUTROPHILS % (AUTO) 89.3 % (38.5-71.5); PLATELET COUNT (AUTO) 430 K/uL (152-348); RED BLOOD CELL COUNT(AUTO) 4.21 MIL/uL (4.06-5.63); WHITE BLOOD COUNT (AUTO) 16.5 K/uL (3.6-10.2)
[2018-09-13 06:40] LABS: CARBON DIOXIDE 29 mmol/L (21-32); CHLORIDE 120 mmol/L (98-107); CREATININE 1.1 mg/dL (0.6-1.3); GLUCOSE 225 mg/dL (74-106); PHOSPHOROUS 3.2 mg/dL (2.5-4.9); POTASSIUM 3.3 mmol/L (3.5-5.1); UREA NITROGEN, BLOOD 26 mg/dL (7-18)
--- NOTE | 2018-09-13 06:51 | NUR ---
pt has been sleeping intermittently through the night, easily awoken, pt showed no s/s of pain, pt after coming back form surgery has been sleeping comfortably, vitals are wnl, pt tolerating 6L on simple mask, pt has less secretions. Dr Padilla had come to see pt during the night, aware of bloody mucus. all needs met, safety measures are in place, call light within reach, bed alarm is on.
--- NOTE | 2018-09-13 07:30 | NUR ---
RECIEVED PT LYING IN BEDE, LETHARGIC AND NON-VERBAL. OPENS EYES TO CALL. APPEARS TO BE WEAL BUT PT ON SOFT WRIST RESTRAINTS FOR MEDICAL SAFETY. SKIN WARM AND DRY. MAIN IVF IS D5W 1L AT 100ML ON SUSIE PATENT AND INTACT. HR IS VPACING 100% WITH UNDERLYING AFIB. PT ON 02 6L SIMPLE MASK SATURATING 95-96%. LUNG CLEAR WITH DIMINISHED BS ON THE BASES.. SUCTIONED MODERATE AMOUNT OF BLOODY SECRETIONS NASALLY. GTUBE INTACT AND PROTECTED WITH AN ABDOMENAL BINDER. NO BLEEDING NOTED AT THE SITE. GOOD PLACEMENT.
[2018-09-13] MEDS: ACETYLCYSTEINE 10% 4ML VIAL NEB SCH ×3 (07:39→23:11)
[2018-09-13 08:18] LABS: BAND % (MANUAL) 3 % (0-10); EOSINOPHILS % (MANUAL) 1 % (0-8); LYMPHOCYTES % (MANUAL) 7 % (20-40); MONOCYTES % (MANUAL) 2 % (2-10); NEUTROPHILS % (MANUAL) 87 % (42-75)
[2018-09-13] MEDS ORDERED: IRR STERIL WATER FOR IRR 1000 ML BOTTLE IR ONE (09:07)
[2018-09-13] MEDS ORDERED: PROPOFOL 200 MG/20 ML BOTTLE IV ONE (09:07)
[2018-09-13] MEDS ORDERED: LIDOCAINE HCL 2% 20 ML VIAL MC ONE (09:07)
[2018-09-13] MEDS ORDERED: IV NORMAL SALINE 1000 ML BAG IV ONE (09:07)
[2018-09-13] MEDS: ASPIRIN 81 MG TAB.CHEW PO SCH (09:46)
[2018-09-13] MEDS: CARVEDILOL 6.25 MG TABLET GT SCH ×2 (09:46→19:08)
--- NOTE | 2018-09-13 10:00 | NUR ---
STARTED TUBE FEEDING GLUCERNA 1.2 10ML/HR FOR A START. NO RESIDUALS NOTED. HAS 1 HUGE AMOUNT OF LOOSE BROWN BM. CLEANED UP AND REPOSITION PT.
[2018-09-13] MEDS: GLUCERNA 1.2 1000ML LIQUID GT PRN (10:14)
--- NOTE | 2018-09-13 11:30 | NUR ---
HELD ASPIRIN AND NOTIFIED DR RUSSELL AND TYRONE PEPPER. PT IS BLEEDING NASALLY WHEN SUCTIONED.
[2018-09-13] MEDS: POTASSIUM CHLORIDE 40 MEQ in IV D5W 1000ML 1,000 ML IV PRN (13:20)
--- NOTE | 2018-09-13 14:00 | NUR ---
BOLUS 250ML WATER VIA GT ORDERED. SODIUM IS HIGH. NO APPARENT DISTRESS NOTED.
[2018-09-13] MEDS ORDERED: VANCOMYCIN IV 1 G in PREMIXED 0 EACH IV SCH (19:00)
--- NOTE | 2018-09-13 20:21 | NUR ---
PHARMACY CLINICAL NOTES ( VANCOMYCIN DOSING) S: 82 YO male , with DX of sepsis,aspiration, HCAP + staph A. He has been treated with Zosyn; Now MD ordered Vancomycin per RX in addition. O: BUN/SCR 26/1.1; WBC 16.5, TEMP 99.0, DOSING WT 58 KG A/P: Will dose Vancomycin as 1000 mg IVPB q23h , estimated peak of 40 and trough of 16.6. RX will continue to monitor renal fxn and will order trough level prior to 4th dose and adjust the dose if necessary.
[2018-09-14] VITALS: BP 106/46
[2018-09-14] MEDS: BLOOD SUGAR DIAGNOSTIC 1 EACH STRIP VI SCH ×4 (00:01→17:24)
[2018-09-14] MEDS: INSULIN REGULAR, HUMAN 300 UNIT/3 ML VIAL SQ PRN ×4 (00:02→17:26)
[2018-09-14] MEDS: IPRATROPIUM BROMIDE 0.5 MG/2.5 ML NEBU NEB SCH ×6 (03:09→23:03)
[2018-09-14] MEDS: ALBUTEROL SULFATE 2.5 MG/ 0.5 ML NEBU NEB SCH ×6 (03:09→23:03)
[2018-09-14 04:00] VITALS: BP 107/45
--- NOTE | 2018-09-14 05:00 | NUR ---
PT LETHARGIC MOST OF THE SHIFT, AROUSABLE, NON VERBAL ,NODS AND OPEN EYES, NO ACUTE DISTRESS ON 5 LITERS OXYGEN CONTINUED IV FLUID D5+40MEQ KCL @ 100CC/ HR WITH ZOSYN. COHEN IN PLACE, NO BM OVERNIGHT AFTER 3 BM IN THE DAY. FEEDING TOLERATED WELL NOW @ 50CC/HR, WATER FLUSHES 750CC WHOLE SHIFT. VSS,AFEBRILE, KEPT ON WRIST RESTRAINT, ATTEMPTED TO REMOVED BINDER. ALL NEEDS ATTENDED , VSS,AFEBRILE.
[2018-09-14] MEDS: PIPERACILLIN/TAZOBACTAM/D5W 3.375 G in PREMIXED 1 EACH IV SCH ×3 (06:06→21:50)
[2018-09-14] MEDS: POTASSIUM CHLORIDE 40 MEQ in IV D5W 1000ML 1,000 ML IV PRN ×2 (06:07→19:32)
[2018-09-14 07:06] VITALS: BP 105/45
[2018-09-14 07:10] LABS: BASOPHILS # (AUTO) 0.1 K/uL (0.0-8.0); BASOPHILS % (AUTO) 0.5 % (0.0-2.0); EOSINOPHILS # (AUTO) 0.2 K/uL (0.0-0.7); LYMPHOCYTES % (AUTO) 8.2 % (20.5-51.5); MEAN CORPUSCULAR HEMOGLOBIN 26.6 uug (23.8-33.4); MEAN CORPUSCULAR HGB CONC 31 g/dL (32.5-36.3); MEAN CORPUSCULAR VOLUME 85.8 fL (73.0-96.2); MONOCYTES # (AUTO) 0.4 K/uL (2.0-10.0); MONOCYTES % (AUTO) 3.6 % (0.0-11.0); NEUTROPHILS # (AUTO) 10.5 K/uL (1.8-8.9); NEUTROPHILS % (AUTO) 85.7 % (38.5-71.5); PLATELET COUNT (AUTO) 344 K/uL (152-348)
[2018-09-14 07:17] LABS: CARBON DIOXIDE 27 mmol/L (21-32); CHLORIDE 112 mmol/L (98-107); CREATININE 1.1 mg/dL (0.6-1.3); MAGNESIUM 1.9 mg/dL (1.8-2.4); PHOSPHOROUS 2.9 mg/dL (2.5-4.9); POTASSIUM 3.6 mmol/L (3.5-5.1); UREA NITROGEN, BLOOD 27 mg/dL (7-18)
[2018-09-14 07:29] LABS: HEMOGLOBIN 10.1 g/dL (12.5-16.3); RED BLOOD CELL COUNT(AUTO) 3.62 MIL/uL (4.06-5.63)
[2018-09-14 07:30] LABS: HEMATOCRIT 31.1 % (36.7-47.1); WHITE BLOOD COUNT (AUTO) 12.2 K/uL (3.6-10.2)
[2018-09-14] MEDS: ACETYLCYSTEINE 10% 4ML VIAL NEB SCH ×3 (07:32→23:03)
[2018-09-14 07:56] LABS: GLUCOSE 321 mg/dL (74-106)
--- NOTE | 2018-09-14 08:00 | NUR ---
Pt very lethargic responds to her name. PT V pacing on tele. HHN tx given by RT. Z- guard applied on groin area. Call light is within reach.
[2018-09-14 11:06] VITALS: BP 118/73
[2018-09-14] MEDS: CARVEDILOL 6.25 MG TABLET GT SCH ×2 (11:30→17:23)
--- NOTE | 2018-09-14 14:06 | NUR ---
PHARMACY CLINICAL NOTES ( VANCOMYCIN DOSING) S: To continue vanco dosing for this 82 yo male patient for sepsis,aspiration, HCAP + staph A. O: BUN/SCR 27/1.1; WBC 12.2, TEMP 98.7 wt 59 kg ht 170 cm A/P: Will continue same dose of Vancomycin 1000 mg IVPB q23h for today. 2nd dose due today at 1800. RX will continue to monitor renal fxn and adjust the dose if needed. will order trough level prior to 4th dose (not yet ordered). Will follow
[2018-09-14 15:03] VITALS: BP 111/45
[2018-09-14] MEDS: GLUCERNA 1.2 1000ML LIQUID GT PRN (17:38)
[2018-09-14 20:40] VITALS: BP 117/54
[2018-09-15] MEDS: BLOOD SUGAR DIAGNOSTIC 1 EACH STRIP VI SCH ×3 (00:01→12:01)
[2018-09-15] MEDS: INSULIN REGULAR, HUMAN 300 UNIT/3 ML VIAL SQ PRN ×3 (00:03→12:00)
[2018-09-15 00:53] VITALS: BP 118/55
[2018-09-15] MEDS: ALBUTEROL SULFATE 2.5 MG/ 0.5 ML NEBU NEB SCH ×4 (02:57→15:24)
[2018-09-15] MEDS: IPRATROPIUM BROMIDE 0.5 MG/2.5 ML NEBU NEB SCH ×4 (02:57→15:25)
[2018-09-15 04:00] VITALS: BP 113/59
[2018-09-15] MEDS: PIPERACILLIN/TAZOBACTAM/D5W 3.375 G in PREMIXED 1 EACH IV SCH ×2 (05:30→13:31)
[2018-09-15] MEDS: POTASSIUM CHLORIDE 40 MEQ in IV D5W 1000ML 1,000 ML IV PRN (05:34)
--- NOTE | 2018-09-15 06:26 | NUR ---
Patient rested well in between care; no acute distress; per Jayme who interpreted, patient appears to have expressive aphasia; keep pulling his lines whenever released from mittens; aspiration precautions maintained; fall prec continued; safety maintained; kept HOB; continue to monitor; continue plan of care
[2018-09-15] MEDS: ACETYLCYSTEINE 10% 4ML VIAL NEB SCH ×2 (07:35→15:25)
--- NOTE | 2018-09-15 08:00 | NUR ---
Pt arousable to pain, Pt more awake today than yesterday. Pt waving his hands around with mittens on and took out oxygen. Put pt back on o2 @ 5L via n/c with humidifier. G tube off no residual noted. IVF infusing as ordered. Pt suctioned out moderate amount of thick white frothy secretions. Oral care done. Call light is within reach.
[2018-09-15] MEDS: CARVEDILOL 6.25 MG TABLET GT SCH ×2 (08:16→16:29)
[2018-09-15 11:14] VITALS: BP 111/53
[2018-09-15] MEDS ORDERED: NUT.237L30 GT (12:57)
[2018-09-15] MEDS ORDERED: PIPE3.376 IV (12:57)
[2018-09-15 13:32] LABS: CARBON DIOXIDE 29 mmol/L (21-32); CHLORIDE 104 mmol/L (98-107); POTASSIUM 4.3 mmol/L (3.5-5.1); UREA NITROGEN, BLOOD 22 mg/dL (7-18)
[2018-09-15 13:40] LABS: GLUCOSE 334 mg/dL (74-106)
[2018-09-15 14:15] LABS: BASOPHILS % (AUTO) 0.3 % (0.0-2.0); EOSINOPHILS # (AUTO) 0.2 K/uL (0.0-0.7); HEMATOCRIT 31.9 % (36.7-47.1); HEMOGLOBIN 10.1 g/dL (12.5-16.3); LYMPHOCYTES # (AUTO) 1.1 K/uL (20.0-40.0); LYMPHOCYTES % (AUTO) 12.4 % (20.5-51.5); MEAN CORPUSCULAR HEMOGLOBIN 27.1 uug (23.8-33.4); MEAN CORPUSCULAR HGB CONC 32 g/dL (32.5-36.3); MEAN CORPUSCULAR VOLUME 85.3 fL (73.0-96.2); MONOCYTES # (AUTO) 0.4 K/uL (2.0-10.0); MONOCYTES % (AUTO) 4.6 % (0.0-11.0); NEUTROPHILS # (AUTO) 7.5 K/uL (1.8-8.9); NEUTROPHILS % (AUTO) 80.7 % (38.5-71.5); PLATELET COUNT (AUTO) 348 K/uL (152-348); RED BLOOD CELL COUNT(AUTO) 3.74 MIL/uL (4.06-5.63); WHITE BLOOD COUNT (AUTO) 9.2 K/uL (3.6-10.2)
[2018-09-15 15:03] VITALS: BP 128/53
[2018-09-15 15:05] LABS: BAND % (MANUAL) 8 % (0-10); LYMPHOCYTES % (MANUAL) 8 % (20-40); MONOCYTES % (MANUAL) 2 % (2-10); NEUTROPHILS % (MANUAL) 82 % (42-75)
[2018-09-15 16:29] VITALS: BP 128/53
--- NOTE | 2018-09-15 17:00 | NUR ---
Spoke with Cori, pt sons, at bedside with estimator project manager phone and estimator project manager #[id number] farsi. Went in detail about discharge instructions with son Allan Verbalized understanding. Family concerned about pt pulling G-tube out stated that pt will go with his mittens on to prevent pt from pulling anything. Pictures taken of mid back and buttocks, and bruising on right arm ac area. Call light is within reach.
--- NOTE | 2018-09-15 17:20 | NUR ---
Report given to Marion RN farm equipment maintenance supervisor of [facility]. Pt left with mittens on for safety secondary to pt still attempts to pull equipment out. Pt is in no acute distress. Pt lethargic. G-tube intact. IV on left arm intact and send with patient. F/c Intact draining dark bernie urine.
[2018-09-15] MEDS ORDERED: ASPI81TA31 PO (18:31)
== END 2018-09-15 17:20 | DRG 871 ==
LOC: ER 21:41 → CCU 23:23 → TELE 09-11 21:45 → TELE-TD 09-12 19:50 → TELE 09-15 10:14
PROVIDERS: ADMIT Nurse Practitioner Acute Care; ATTEND Nurse Practitioner Acute Care
PROC: 0DJ08ZZ Inspection of Upper Intestinal Tract, Via Natural or Artificial Opening Endoscopic (ICD-10-PCS; principal; 2018-09-13)
DX: A41.9 Sepsis, unspecified organism (principal); J15.6 Pneumonia due to other Gram-negative bacteria; R53.2 Functional quadriplegia; N17.0 Acute kidney failure with tubular necrosis; J69.0 Pneumonitis due to inhalation of food and vomit; E43 Unspecified severe protein-calorie malnutrition; I21.A1 Myocardial infarction type 2; Z43.1 Encounter for attention to gastrostomy; I50.42 Chronic combined systolic (congestive) and diastolic (congestive) heart failure; G93.40 Encephalopathy, unspecified; D68.59 Other primary thrombophilia; E87.0 Hyperosmolality and hypernatremia; R06.03 Acute respiratory distress; E86.0 Dehydration; I69.320 Aphasia following cerebral infarction; R62.7 Adult failure to thrive; Z68.20 Body mass index [BMI] 20.0-20.9, adult; I25.10 Atherosclerotic heart disease of native coronary artery without angina pectoris; Z95.1 Presence of aortocoronary bypass graft; Z79.4 Long term (current) use of insulin; I48.2 Chronic atrial fibrillation; I25.5 Ischemic cardiomyopathy; E78.5 Hyperlipidemia, unspecified; Z85.46 Personal history of malignant neoplasm of prostate; I69.191 Dysphagia following nontraumatic intracerebral hemorrhage; R13.10 Dysphagia, unspecified; E11.65 Type 2 diabetes mellitus with hyperglycemia; K29.70 Gastritis, unspecified, without bleeding; I11.0 Hypertensive heart disease with heart failure; D47.3 Essential (hemorrhagic) thrombocythemia; D64.9 Anemia, unspecified; I07.1 Rheumatic tricuspid insufficiency; E87.8 Other disorders of electrolyte and fluid balance, not elsewhere classified; Z87.891 Personal history of nicotine dependence; Z79.82 Long term (current) use of aspirin
CPT/HCPCS: 36415; 36600; 49440; 70030-TC; 71045; 74018; 76700; 83605; 83735; 84100; 85025; 85730; 87040; 87070; 87077; 87086; 93005; 94640; 94664; A4217; A4663; G0378; J1815; J1956; J2543; J3010; J3370; J3480; J3490; J3590; J7030; J7042; J7050; J7070; Q9963